=== PATIENT | female | born 1970 | race Caucasian/White ===

== ENCOUNTER 2020-09-25 15:52 | Emergency (ER) | payer MEDICARE ==
[~2020-09-25] VITALS: Ht 165.1 cm; Wt 90.9 kg
--- NOTE | 2020-09-25 16:46 | NUR ---
ELLEN ANGLIN IN ROOM, AMINTA VILLANUEVA TO SOAK WOUND TO REMOVE DRESSING AND BE ABLE TO VISUALILZE WOUNDS TO LEFT LATERL AND LEFT ANTERIOR LOWER LEG WOUND #1 ABOUT 12 CM ACROSS AND 7 CM WIDE
[2020-09-25] MEDS ORDERED: TETanus/Pertussis (Acell)/Diphther VAC/PF (Tdap-Adult) 0.5ml syringe IMVAC ONE (16:50)
--- NOTE | 2020-09-25 17:04 | NUR ---
wound #2 left lower leg lateral : 4cm x2cm, cleaned with chlorhexidine soap, xeroform, non adherent, gauze and mahsa wrap wound #2 red and green colored pa aware: cleaned with clorhexidine, xeroform and non adherent applied, gauze and mahsa wrap
--- NOTE | 2020-09-25 17:22 | NUR ---
asked zachery kwan to clean lower right leg with chlorhexidine brush and aplly bandaids to 3 wounds per pa rubio
--- NOTE | 2020-09-25 17:23 | NUR ---
3 smal abrasion like wounds to right lower exttremity, no dressing appear scabbed over and are about 0.5 cm each
[2020-09-25 17:26] VITALS: BP 139/73
--- NOTE | 2020-09-25 17:32 | NUR ---
CALLED [employer]MAEL [employer]ACON COMPUTATIONAL MATHEMATICIAN TO PICK HER UP. [phone] [id number]
--- NOTE | 2020-09-25 17:38 | NUR ---
SCRUBBED RIGHT LOWER LEG WITH CHLORHEXIDINE AND PLACED 3 BAND AIDS
== END 2020-09-25 17:35 | disposition home or self-care (01) ==
LOC: ER 15:53
DX: S81.802A Unspecified open wound, left lower leg, initial encounter (principal); I10 Essential (primary) hypertension; Z20.3 Contact with and (suspected) exposure to rabies; Z59.0 Homelessness; Z88.0 Allergy status to penicillin; Z88.8 Allergy status to other drugs, medicaments and biological substances; X58.XXXA Exposure to other specified factors, initial encounter; Y93.89 Activity, other specified; Y92.89 Other specified places as the place of occurrence of the external cause; Y99.8 Other external cause status
CPT/HCPCS: 90471; 90715; 99284

== ENCOUNTER 2020-10-01 15:27 | Emergency (ER) | payer MEDICARE ==
[~2020-10-01] VITALS: Ht 165.1 cm; Wt 86.3 kg
[2020-10-01] MEDS ORDERED: DOXYCYCLINE 100MG CAPSULE PO STA (17:30)
[2020-10-01] MEDS ORDERED: DOXY100C77 PO (17:40)
[2020-10-01 17:59] VITALS: BP 125/76
== END 2020-10-01 18:01 | disposition home or self-care (01) ==
LOC: ER 15:28
DX: L03.116 Cellulitis of left lower limb (principal); I83.029 Varicose veins of left lower extremity with ulcer of unspecified site; Z59.0 Homelessness; Z88.0 Allergy status to penicillin; Z88.1 Allergy status to other antibiotic agents; Z88.8 Allergy status to other drugs, medicaments and biological substances
CPT/HCPCS: 99284

== ENCOUNTER 2020-10-22 21:57 | Emergency (ER) | payer MEDICARE ==
[~2020-10-22] VITALS: Ht 165.1 cm; Wt 89.1 kg
[2020-10-22 22:00] VITALS: BP 136/86
[2020-10-22] MEDS ORDERED: CALA180L6 TOP (22:19)
[2020-10-22] MEDS ORDERED: DIPH-423 PO (22:19)
[2020-10-22] MEDS ORDERED: LORA10TA65 PO (22:19)
== END 2020-10-22 22:49 | disposition home or self-care (01) ==
LOC: ER 21:57
DX: S60.561A Insect bite (nonvenomous) of right hand, initial encounter (principal); S60.562A Insect bite (nonvenomous) of left hand, initial encounter; S80.862A Insect bite (nonvenomous), left lower leg, initial encounter; S80.861A Insect bite (nonvenomous), right lower leg, initial encounter; S20.469A Insect bite (nonvenomous) of unspecified back wall of thorax, initial encounter; Z59.0 Homelessness; Z88.0 Allergy status to penicillin; Z88.1 Allergy status to other antibiotic agents; Z79.899 Other long term (current) drug therapy; W57.XXXA Bitten or stung by nonvenomous insect and other nonvenomous arthropods, initial encounter; Y93.89 Activity, other specified; Y92.89 Other specified places as the place of occurrence of the external cause; Y99.8 Other external cause status
CPT/HCPCS: 99282

== ENCOUNTER 2021-06-09 10:58 | Inpatient (IN) | payer MEDICARE, MEDICAID ==
[~2021-06-09] VITALS: Ht 165.1 cm; Wt 84.1 kg
[~2021-06-09 10:58] MED LIST: CALA180L6 TOP; DIPH-423 PO; LORA10TA65 PO
[2021-06-09] MEDS ORDERED: diphenhydrAMINE 50 mg/ml inj IM ONE (11:05)
[2021-06-09] MEDS ORDERED: haloperidol lactate 5mg/ml inj IM ONE ×2 (11:05→13:00)
[2021-06-09] MEDS ORDERED: LORazepam 2 mg/ml vial IM ONE (11:05)
[2021-06-09] MEDS ORDERED: normal saline 1000ml 1,000 ML IV ONE (11:10)
[2021-06-09] MEDS ORDERED: vancomycin/NS 1 GM ADD-VANTAGE 250 ML IV ONE (11:10)
[2021-06-09] MEDS ORDERED: meropenem inj 1 GM in normal saline 100ml IV soln 100 ML IV ONE (12:00)
--- NOTE | 2021-06-09 12:04 | NUR ---
CALLED PHARMACY, DEONNA NOT AVAILABLE IN THE [facility]..
[2021-06-09 12:35] LABS: EOSINOPHILS # (AUTO) 0.1 X10'3 (0-0.9); MEAN CORPUSCULAR HGB CONC 32.5 g/dL (33.0-36.5)
[2021-06-09 12:39] LABS: BASOPHILS % (AUTO) 0.5 % (0-1); EOSINOPHILS % (AUTO) 1.2 % (0-6); HEMATOCRIT 38.7 % (35.0-45.0); HEMOGLOBIN 12.6 g/dl (12.0-16.0); LYMPHOCYTES # (AUTO) 1.1 X10'3 (1.1-4.8); LYMPHOCYTES % (AUTO) 13.9 % (21-51); MEAN CORPUSCULAR VOLUME 86.2 FL (78-98); MEAN PLATELET VOLUME 8.3 FL (7.4-10.4); MONOCYTES # (AUTO) 0.5 X10'3 (0-0.9); MONOCYTES % (AUTO) 6.3 % (2-12); NEUTROPHILS # (AUTO) 6.4 X10'3 (1.8-7.7); NEUTROPHILS % (AUTO) 78.1 % (42-75); PLATELET COUNT 346 X10'3 (140-440); RED BLOOD COUNT 4.49 X10'6 (4.20-5.60); RED CELL DISTRIBUTION WIDTH 15.2 % (11.5-14.5); WHITE BLOOD COUNT 8.3 X10'3 (4.5-11.0)
[2021-06-09 12:42] LABS: ANION GAP 9 (8-16); BLOOD UREA NITROGEN 13 MG/DL (7-18); BUN/CREATININE RATIO 13.5 (6.6-38.0); CALCIUM 8.9 MG/DL (8.5-10.1); CHLORIDE 105 MMOL/L (99-107); CREATININE 0.96 MG/DL (0.40-0.90); GLUCOSE 103 MG/DL (70-104); POTASSIUM 3.5 MMOL/L (3.5-5.1); SODIUM 140 MMOL/L (135-145); TOTAL CARBON DIOXIDE 26.4 MMOL/L (24-32); eGFR 61 ML/MIN
[2021-06-09] MEDS ORDERED: diphenhydrAMINE 50 mg/ml inj IV ONE (13:00)
--- NOTE | 2021-06-09 13:32 | NUR ---
PT YELLING AND CUSSING AND TRYING TO GET OUT OF BED NOTIFIED DR CERVANTES ORDERS FOR BENADRYL AND HALDOL GEORGIVVEN
[2021-06-09] MEDS ORDERED: iohexol 300mg/ml 100ml inj. ONE (14:15)
[2021-06-09] MEDS ORDERED: magnesium Cl slow-release 64mg tablet PO PRN (16:00)
[2021-06-09] MEDS ORDERED: ondansetron/PF 4mg/2ml inj IV PRN (16:00)
[2021-06-09] MEDS ORDERED: acetaminophen 650mg rectal suppository RC PRN (16:00)
[2021-06-09] MEDS ORDERED: acetaminophen 325mg tablet PO PRN ×2 (16:00)
[2021-06-09] MEDS ORDERED: potassium Cl 40MEQ/1/2NS 520ml 520 ML IV PRN ×2 (16:00)
[2021-06-09] MEDS ORDERED: potassium Cl 20 mEq SR tablet PO PRN ×2 (16:00)
[2021-06-09] MEDS ORDERED: magnesium hydroxide 30ml (MOM) UD suspension PO PRN (16:00)
[2021-06-09] MEDS ORDERED: bisacodyl 10mg suppository rectal RC PRN (16:00)
[2021-06-09] MEDS ORDERED: magnesium 2GM in 50ml NS 50 ML IV PRN (16:00)
[2021-06-09] MEDS ORDERED: morphine 2 MG/ML inj. syringe IV PRN (16:00)
[2021-06-09] MEDS ORDERED: magnesium 4gm in 100ml NS 100 ML IV PRN (16:00)
[2021-06-09] MEDS ORDERED: HYDROcodone/acetaminophen 5mg/325mg tablet PO PRN (16:00)
[2021-06-09] MEDS ORDERED: mag hydrox/Alum hydrox/simeth 30ml oral suspension PO PRN (16:00)
[2021-06-09] MEDS ORDERED: diphenhydrAMINE 25mg capsule PO PRN (16:00)
[2021-06-09] MEDS: normal saline 1000ml 1,000 ML IV SCH (16:49)
[2021-06-09] MEDS: morphine 2 MG/ML inj. syringe IV PRN (18:13)
[2021-06-09] MEDS: HYDROcodone/acetaminophen 10/325mg tab PO PRN ×2 (18:34→22:32)
[2021-06-09 18:42] LABS: URINE AMPHETAMINE SCREEN POSITIVE (Neg); URINE BARBITUATE SCREEN NEGATIVE (Neg); URINE BENZODIAZEPINES SCREEN NEGATIVE (Neg); URINE CANNABINOID SCREEN POSITIVE (Neg); URINE COCAINE SCREEN NEGATIVE (Neg); URINE METHADONE SCREEN NEGATIVE (Neg); URINE OPIATE SCREEN NEGATIVE (Neg); URINE PHENCYCLIDINE SCREEN NEGATIVE (Neg)
[2021-06-09 18:49] LABS: UA COLLECTION TYPE CLN CATCH MIDSTREAM
[2021-06-09 18:52] LABS: CLARITY,URINE SLIGHTLY CLOUDY (Clear); COLOR,URINE YELLOW (Yellow); GLUCOSE, URINE NEGATIVE (Neg); KETONES,URINE NEGATIVE (Neg); LEUKOCYTE ESTERASE ,URINE NEGATIVE (Neg); NITRITES, URINE POSITIVE (Neg); OCCULT BLOOD,URINE NEGATIVE (Neg); PH,URINE 6.5 (4.8-8.0); PROTEIN,URINE NEGATIVE (Neg); UROBILINOGEN,URINE 0.2 E.U/dL (0.2-1.0)
[2021-06-09 18:53] LABS: BACTERIA,URINE FEW /HPF (Neg); SQUAMOUS EPITHELIAL CELL,UR FEW /LPF (FEW); WBC,URINE 0-4 /HPF (0-4)
[2021-06-09] MEDS: heparin, porcine 5000 units/ml vial SQ SCH (20:00)
[2021-06-09] MEDS: K and/or MAG REPLACEMENT MC SCH (20:00)
[2021-06-09] MEDS: docusate sod 100mg capsule PO SCH (20:00)
[2021-06-09] MEDS ORDERED: UNABLE TO OBTAIN (20:09)
[2021-06-10] MEDS: normal saline 1000ml 1,000 ML IV SCH ×3 (02:59→22:00)
[2021-06-10 07:54] LABS: BASOPHILS % (AUTO) 0.3 % (0-1); EOSINOPHILS # (AUTO) 0.1 X10'3 (0-0.9); EOSINOPHILS % (AUTO) 1.4 % (0-6); HEMOGLOBIN 12.3 g/dl (12.0-16.0); LYMPHOCYTES # (AUTO) 0.6 X10'3 (1.1-4.8); LYMPHOCYTES % (AUTO) 8.8 % (21-51); MEAN CORPUSCULAR HEMOGLOBIN 28.4 PG (27.0-31.0); MEAN CORPUSCULAR HGB CONC 33.1 g/dL (33.0-36.5); MEAN CORPUSCULAR VOLUME 85.9 FL (78-98); MEAN PLATELET VOLUME 7.8 FL (7.4-10.4); MONOCYTES # (AUTO) 0.5 X10'3 (0-0.9); MONOCYTES % (AUTO) 7.3 % (2-12); NEUTROPHILS % (AUTO) 82.2 % (42-75); PLATELET COUNT 317 X10'3 (140-440); RED BLOOD COUNT 4.31 X10'6 (4.20-5.60); RED CELL DISTRIBUTION WIDTH 15.7 % (11.5-14.5); WHITE BLOOD COUNT 7.3 X10'3 (4.5-11.0)
[2021-06-10] MEDS: K and/or MAG REPLACEMENT MC SCH ×2 (08:00→20:00)
[2021-06-10] MEDS: docusate sod 100mg capsule PO SCH ×2 (08:00→20:00)
[2021-06-10] MEDS: heparin, porcine 5000 units/ml vial SQ SCH ×2 (08:00→23:49)
[2021-06-10] MEDS: propranolol 10mg tablet PO SCH ×2 (09:25→23:30)
[2021-06-10 10:35] LABS: ALANINE AMINOTRANSFERASE 16 U/L (12-78); ALBUMIN 2.7 G/DL (3.4-5.0); ALBUMIN/GLOBULIN RATIO 0.6 (1.1-1.5); ALKALINE PHOSPHATASE 100 IU/L (46-116); ANION GAP 9 (8-16); ASPARTATE AMINO TRANSFERASE 13 U/L (10-37); BILIRUBIN,TOTAL 0.9 MG/DL (0.1-1.0); BLOOD UREA NITROGEN 9 MG/DL (7-18); BUN/CREATININE RATIO 10.7 (6.6-38.0); CALCIUM 8.5 MG/DL (8.5-10.1); CHLORIDE 106 MMOL/L (99-107); CHOL/HDL RATIO 2.7 (0.00-4.99); CHOLESTEROL 123 MG/DL (0-200); CREATININE 0.84 MG/DL (0.40-0.90); GLUCOSE 87 MG/DL (70-104); HDL CHOLESTEROL 45 MG/DL (35-60); LDL CHOLESTEROL 62 MG/DL (50-100); MAGNESIUM 1.9 MG/DL (1.5-2.4); PHOSPHORUS 3.6 MG/DL (2.3-4.5); POTASSIUM 3.8 MMOL/L (3.5-5.1); SODIUM 142 MMOL/L (135-145); TOTAL CARBON DIOXIDE 26.9 MMOL/L (24-32); TOTAL PROTEIN 7.6 G/DL (6.4-8.2); TRIGLYCERIDES 60 MG/DL (20-135); eGFR 71 ML/MIN
[2021-06-10] MEDS: meropenem inj 1 GM in normal saline 100ml IV soln 100 ML IV SCH ×3 (12:32)
--- NOTE | 2021-06-10 12:45 | NUR ---
Pt is somulent. Has positional R EJ 18G. Large wound/ulcer on L LE 20cm x 10cm. Cleaned wound and dress with xeroform, abd pad and kerlex.
[2021-06-10] MEDS: amLODIPine 5mg tablet PO SCH (12:54)
--- NOTE | 2021-06-10 13:28 | NUR ---
Pt is calm and cooperative. Eating lunch. She made a verbal contract that she will not harm herself while here in the ER.
[2021-06-10] MEDS ORDERED: ipratropium/albuterol 3ml nebule NEB PRN (14:05)
[2021-06-10] MEDS: vancomycin/NS 1 GM ADD-VANTAGE 250 ML IV SCH ×2 (17:12)
[2021-06-10] MEDS ORDERED: VANCOMYCIN LEVEL IV ONE (23:30)
[2021-06-10] MEDS ORDERED: vancomycin/NS 1 GM ADD-VANTAGE 250 ML IV SCH (23:39)
[2021-06-11 07:48] LABS: ALANINE AMINOTRANSFERASE 10 U/L (12-78); ALBUMIN 2.4 G/DL (3.4-5.0); ALBUMIN/GLOBULIN RATIO 0.5 (1.1-1.5); ALKALINE PHOSPHATASE 95 IU/L (46-116); ANION GAP 8 (8-16); ASPARTATE AMINO TRANSFERASE 13 U/L (10-37); BILIRUBIN,TOTAL 0.6 MG/DL (0.1-1.0); BLOOD UREA NITROGEN 9 MG/DL (7-18); BUN/CREATININE RATIO 13.4 (6.6-38.0); CALCIUM 8.4 MG/DL (8.5-10.1); CHLORIDE 107 MMOL/L (99-107); CREATININE 0.67 MG/DL (0.40-0.90); GLUCOSE 96 MG/DL (70-104); PHOSPHORUS 3.2 MG/DL (2.3-4.5); POTASSIUM 3.7 MMOL/L (3.5-5.1); SODIUM 140 MMOL/L (135-145); TOTAL CARBON DIOXIDE 24.7 MMOL/L (24-32); TOTAL PROTEIN 7.4 G/DL (6.4-8.2); eGFR > 90 ML/MIN
[2021-06-11] MEDS: K and/or MAG REPLACEMENT MC SCH ×2 (08:00→20:00)
[2021-06-11 08:27] LABS: BASOPHILS % (AUTO) 0.7 % (0-1); EOSINOPHILS # (AUTO) 0.1 X10'3 (0-0.9); EOSINOPHILS % (AUTO) 2.5 % (0-6); HEMATOCRIT 38.4 % (35.0-45.0); HEMOGLOBIN 12.5 g/dl (12.0-16.0); LYMPHOCYTES # (AUTO) 1.5 X10'3 (1.1-4.8); LYMPHOCYTES % (AUTO) 28.9 % (21-51); MEAN CORPUSCULAR HEMOGLOBIN 28.2 PG (27.0-31.0); MEAN CORPUSCULAR HGB CONC 32.5 g/dL (33.0-36.5); MEAN CORPUSCULAR VOLUME 86.8 FL (78-98); MEAN PLATELET VOLUME 7.4 FL (7.4-10.4); MONOCYTES # (AUTO) 0.4 X10'3 (0-0.9); MONOCYTES % (AUTO) 7.5 % (2-12); NEUTROPHILS # (AUTO) 3.1 X10'3 (1.8-7.7); NEUTROPHILS % (AUTO) 60.4 % (42-75); PLATELET COUNT 308 X10'3 (140-440); RED BLOOD COUNT 4.42 X10'6 (4.20-5.60); RED CELL DISTRIBUTION WIDTH 15.5 % (11.5-14.5); WHITE BLOOD COUNT 5.1 X10'3 (4.5-11.0)
[2021-06-11] MEDS: meropenem inj 1 GM in normal saline 100ml IV soln 100 ML IV SCH ×4 (09:45→16:15)
[2021-06-11] MEDS: normal saline 1000ml 1,000 ML IV SCH (09:45)
[2021-06-11] MEDS: heparin, porcine 5000 units/ml vial SQ SCH ×2 (09:49→19:59)
[2021-06-11] MEDS: docusate sod 100mg capsule PO SCH ×2 (09:52→19:58)
[2021-06-11] MEDS: amLODIPine 5mg tablet PO SCH (09:53)
[2021-06-11] MEDS: propranolol 10mg tablet PO SCH ×2 (09:53→19:58)
[2021-06-11] MEDS: vancomycin/NS 1 GM ADD-VANTAGE 250 ML IV SCH ×2 (10:07→20:50)
[2021-06-11] MEDS: morphine 2 MG/ML inj. syringe IV PRN (10:07)
[2021-06-11] MEDS: HYDROcodone/acetaminophen 10/325mg tab PO PRN ×3 (11:51→21:14)
[2021-06-11] MEDS ORDERED: amLODIPine 5mg tablet PO ONE (13:05)
[2021-06-11 17:00] VITALS: BP 107/65
[2021-06-11 18:00] VITALS: BP 124/86
[2021-06-11] MEDS ORDERED: VANCOMYCIN LEVEL IV ONE (20:30)
[2021-06-11 22:00] VITALS: BP 118/72
[2021-06-12] MEDS: meropenem inj 1 GM in normal saline 100ml IV soln 100 ML IV SCH ×3 (00:42→15:37)
[2021-06-12] MEDS: normal saline 1000ml 1,000 ML IV SCH ×3 (00:43→14:23)
[2021-06-12 02:00] VITALS: BP 148/88
--- NOTE | 2021-06-12 03:37 | NUR ---
Patient has a positive blood cultures result MD Cooley aware, patient still want to go see her dog at am , educated patient to wait and complete her treatment will continue to monitor and report changes
--- NOTE | 2021-06-12 06:30 | NUR ---
Patient in room PCU 3025. I have received report from Vibha CA and had the opportunity to ask questions and assume patient care.
[2021-06-12 06:47] LABS: EOSINOPHILS # (AUTO) 0.1 X10'3 (0-0.9); HEMATOCRIT 35.2 % (35.0-45.0); HEMOGLOBIN 11.5 g/dl (12.0-16.0); LYMPHOCYTES # (AUTO) 1.2 X10'3 (1.1-4.8); LYMPHOCYTES % (AUTO) 31.3 % (21-51); MEAN CORPUSCULAR HEMOGLOBIN 28.5 PG (27.0-31.0); MEAN CORPUSCULAR HGB CONC 32.8 g/dL (33.0-36.5); MEAN CORPUSCULAR VOLUME 86.9 FL (78-98); MONOCYTES # (AUTO) 0.4 X10'3 (0-0.9); MONOCYTES % (AUTO) 9.7 % (2-12); PLATELET COUNT 288 X10'3 (140-440); RED BLOOD COUNT 4.05 X10'6 (4.20-5.60); RED CELL DISTRIBUTION WIDTH 15.6 % (11.5-14.5); WHITE BLOOD COUNT 3.7 X10'3 (4.5-11.0)
[2021-06-12 07:21] LABS: ALANINE AMINOTRANSFERASE 12 U/L (12-78); ALBUMIN 2.4 G/DL (3.4-5.0); ALBUMIN/GLOBULIN RATIO 0.5 (1.1-1.5); ALKALINE PHOSPHATASE 95 IU/L (46-116); ANION GAP 6 (8-16); ASPARTATE AMINO TRANSFERASE 14 U/L (10-37); BILIRUBIN,TOTAL 0.4 MG/DL (0.1-1.0); BLOOD UREA NITROGEN 15 MG/DL (7-18); BUN/CREATININE RATIO 18.1 (6.6-38.0); CALCIUM 8.8 MG/DL (8.5-10.1); CHLORIDE 106 MMOL/L (99-107); CREATININE 0.83 MG/DL (0.40-0.90); GLUCOSE 84 MG/DL (70-104); MAGNESIUM 2.2 MG/DL (1.5-2.4); PHOSPHORUS 3.4 MG/DL (2.3-4.5); POTASSIUM 4.2 MMOL/L (3.5-5.1); SODIUM 139 MMOL/L (135-145); TOTAL CARBON DIOXIDE 26.6 MMOL/L (24-32); TOTAL PROTEIN 7.5 G/DL (6.4-8.2); eGFR 72 ML/MIN
[2021-06-12] MEDS ORDERED: amLODIPine 5mg tablet PO SCH (08:00)
[2021-06-12] MEDS: K and/or MAG REPLACEMENT MC SCH ×2 (08:00→20:00)
[2021-06-12] MEDS: HYDROcodone/acetaminophen 10/325mg tab PO PRN ×2 (08:49→20:57)
[2021-06-12] MEDS: propranolol 10mg tablet PO SCH ×2 (08:49→20:54)
[2021-06-12] MEDS: heparin, porcine 5000 units/ml vial SQ SCH ×2 (08:54→20:56)
[2021-06-12] MEDS: docusate sod 100mg capsule PO SCH ×2 (08:54→20:00)
[2021-06-12] MEDS: vancomycin/NS 1 GM ADD-VANTAGE 250 ML IV SCH ×2 (09:37→20:56)
--- NOTE | 2021-06-12 10:55 | NUR ---
Met with patient in regards to substance use and to see if patient wanted any resources for treatment and patient declined
[2021-06-12 11:00] VITALS: BP 166/98
--- NOTE | 2021-06-12 11:39 | NUR ---
Paged Dr. Colon regarding [phone]. PAGER ID: [phone] MESSAGE: [id number], Rachel Franklin. Radha spoke with patient, Radha says patient doesn't need [phone], and is cleared from her standpoint. U Emily CA.
[2021-06-12 15:22] VITALS: BP 152/98
--- NOTE | 2021-06-12 18:28 | NUR ---
Problems reprioritized. Patient report given, questions answered & plan of care reviewed with Davin CA. Patient stable at transfer of care.
--- NOTE | 2021-06-12 18:41 | NUR ---
Patient in room PCU 3025. I have received report from Davie CA and had the opportunity to ask questions and assume patient care.
[2021-06-12 19:35] VITALS: BP 125/84
[2021-06-12] MEDS ORDERED: lactobacillus rhamnosus 10,000 MMU CELLS/CAPSULE PO SCH (20:00)
[2021-06-13] MEDS: meropenem inj 1 GM in normal saline 100ml IV soln 100 ML IV SCH (00:42)
--- NOTE | 2021-06-13 01:27 | NUR ---
patient declared the desire to leave the hospital AMA. This loan underwriter spoke with patient to confirm that patient was alert and oriented. Patient knew she was in [facility], in [facility], that the year was 2020, and who the current president was. Social work had already cleared the patient for discharge during the previous shift. MD notified of patient's decision. IV and Telemetry removed from patient, and AMA paperwork was signed by patient.
== END 2021-06-13 01:20 | disposition left against medical advice (07) | DRG 917 ==
LOC: ER 10:59 → ED HOLD 16:05 → EDBEDREQ 06-11 02:12 → PCU 3S 06-11 11:39
PROVIDERS: ADMIT Family Medicine; ATTEND Family Medicine
PROC: BQ2S1ZZ Computerized Tomography (CT Scan) of Left Lower Extremity using Low Osmolar Contrast (ICD-10-PCS; principal; 2021-06-09)
DX: T43.621A Poisoning by amphetamines, accidental (unintentional), initial encounter (principal); A41.9 Sepsis, unspecified organism; L97.329 Non-pressure chronic ulcer of left ankle with unspecified severity; N39.0 Urinary tract infection, site not specified; L03.116 Cellulitis of left lower limb; G93.40 Encephalopathy, unspecified; Z20.822 Contact with and (suspected) exposure to COVID-19; Z53.29 Procedure and treatment not carried out because of patient's decision for other reasons; Y92.89 Other specified places as the place of occurrence of the external cause; Z59.00 Homelessness unspecified; Z88.0 Allergy status to penicillin; Z88.8 Allergy status to other drugs, medicaments and biological substances
CPT/HCPCS: 36415; 71045; 73701; 76937; 80048; 80053; 80061; 80202; 80305; 81001; 83605; 83735; 84100; 84443; 85025; 87040; 87077; 87088; 87186; 87635; 93926; 93970; 93971; 94760; 96365; 96367; 96372; 96375; 97116; 97161; 99215; 99285; G0378; J1200; J1630; J1644; J2060; J2185; J2270; J3370; J7030; Q9967

== ENCOUNTER 2021-07-13 20:20 | Inpatient (IN) | payer MEDICARE, MEDICAID ==
[~2021-07-13] VITALS: Ht 165.1 cm; Wt 84.1 kg
[~2021-07-13 20:20] MED LIST changes: -CALA180L6 TOP; -DIPH-423 PO; -LORA10TA65 PO; +UNABLE TO OBTAIN
[2021-07-13 23:36] LABS: BASOPHILS % (AUTO) 0.6 % (0-1); EOSINOPHILS # (AUTO) 0.1 X10'3 (0-0.9); EOSINOPHILS % (AUTO) 1.8 % (0-6); HEMATOCRIT 35.3 % (35.0-45.0); HEMOGLOBIN 11.4 g/dl (12.0-16.0); LYMPHOCYTES # (AUTO) 0.6 X10'3 (1.1-4.8); LYMPHOCYTES % (AUTO) 9.1 % (21-51); MEAN CORPUSCULAR HEMOGLOBIN 27.7 PG (27.0-31.0); MEAN CORPUSCULAR HGB CONC 32.3 g/dL (33.0-36.5); MEAN CORPUSCULAR VOLUME 85.7 FL (78-98); MEAN PLATELET VOLUME 7.6 FL (7.4-10.4); MONOCYTES # (AUTO) 0.4 X10'3 (0-0.9); MONOCYTES % (AUTO) 6.2 % (2-12); NEUTROPHILS # (AUTO) 5.9 X10'3 (1.8-7.7); NEUTROPHILS % (AUTO) 82.3 % (42-75); PLATELET COUNT 375 X10'3 (140-440); RED BLOOD COUNT 4.12 X10'6 (4.20-5.60); WHITE BLOOD COUNT 7.1 X10'3 (4.5-11.0)
[2021-07-13 23:42] LABS: ALBUMIN 3.1 G/DL (3.4-5.0); BLOOD UREA NITROGEN 16 MG/DL (7-18); BUN/CREATININE RATIO 13.1 (6.6-38.0); CALCIUM 8.9 MG/DL (8.5-10.1); CREATININE 1.22 MG/DL (0.40-0.90); GLUCOSE 103 MG/DL (70-104); TOTAL CARBON DIOXIDE 28.5 MMOL/L (24-32); eGFR 46 ML/MIN
[2021-07-13 23:56] LABS: ANION GAP 8 (8-16); CHLORIDE 102 MMOL/L (99-107); POTASSIUM 3.4 MMOL/L (3.5-5.1); SODIUM 138 MMOL/L (135-145)
[2021-07-14] MEDS ORDERED: LIDOcaine 1% 30ml preserv. free vial IJ ONE (00:50)
[2021-07-14] MEDS: TETanus/Pertussis (Acell)/Diphther VAC/PF (Tdap-Adult) 0.5ml syringe IMVAC ONE ×2 (01:13→01:15)
[2021-07-14] MEDS ORDERED: metroNIDAZOLE-Flagyl 500mg/NS 100 ML IV STA (01:48)
[2021-07-14] MEDS ORDERED: vancomycin/NS 1 GM ADD-VANTAGE 250 ML IV ONE (01:55)
[2021-07-14] MEDS ORDERED: bisacodyl 10mg suppository rectal RC PRN (03:05)
[2021-07-14] MEDS ORDERED: diphenhydrAMINE 25mg capsule PO PRN (03:05)
[2021-07-14] MEDS ORDERED: magnesium Cl slow-release 64mg tablet PO PRN (03:05)
[2021-07-14] MEDS ORDERED: HYDROcodone/acetaminophen 5mg/325mg tablet PO PRN (03:05)
[2021-07-14] MEDS ORDERED: magnesium hydroxide 30ml (MOM) UD suspension PO PRN (03:05)
[2021-07-14] MEDS ORDERED: magnesium 2GM in 50ml NS 50 ML IV PRN (03:05)
[2021-07-14] MEDS ORDERED: ondansetron/PF 4mg/2ml inj IV PRN (03:05)
[2021-07-14] MEDS ORDERED: diphenhydrAMINE 50 mg/ml inj IV PRN (03:05)
[2021-07-14] MEDS ORDERED: potassium Cl 20 mEq SR tablet PO PRN ×2 (03:05)
[2021-07-14] MEDS ORDERED: HYDROcodone/acetaminophen 10/325mg tab PO PRN (03:05)
[2021-07-14] MEDS ORDERED: magnesium 4gm in 100ml NS 100 ML IV PRN (03:05)
[2021-07-14] MEDS ORDERED: metoclopramide 5 mg/ml inj IV PRN (03:05)
[2021-07-14] MEDS ORDERED: acetaminophen 325mg tablet PO PRN ×2 (03:05)
[2021-07-14] MEDS ORDERED: mag hydrox/Alum hydrox/simeth 30ml oral suspension PO PRN (03:05)
[2021-07-14] MEDS ORDERED: acetaminophen 650mg rectal suppository RC PRN (03:05)
[2021-07-14] MEDS ORDERED: normal saline 1000ml 1,000 ML IV SCH (03:05)
[2021-07-14] MEDS ORDERED: ondansetron 4mg rapidly disintigrating tab PO PRN (03:05)
[2021-07-14] MEDS ORDERED: morphine 2 MG/ML inj. syringe IV PRN ×2 (03:05)
[2021-07-14] MEDS ORDERED: potassium CL 10mEq/100ml bag 100 ML IV PRN (03:05)
[2021-07-14 04:04] LABS: ETHANOL < 0.010 GM/DL (0.0-0.010); MAGNESIUM 2.2 MG/DL (1.5-2.4)
--- NOTE | 2021-07-14 04:43 | NUR ---
at bedside suturing pt.
--- NOTE | 2021-07-14 05:10 | NUR ---
Patient in room DIVYA 340. I have received report from Epi Owen rN and had the opportunity to ask questions and WILL pt assume patient care upon arrival to the floor. Addendum: 07/14/21 at 0548 by Edelmira Rodriguez RN Amended: Links added.
[2021-07-14] MEDS ORDERED: methylPREDNISolone sod succ 125mg/2ml vial IV ONE (06:40)
[2021-07-14] MEDS ORDERED: diphenhydrAMINE 50 mg/ml inj IV ONE (06:40)
--- NOTE | 2021-07-14 06:47 | NUR ---
Problems reprioritized. Patient report given, questions answered & plan of care reviewed with LEO CA. Addendum: 07/14/21 at 0648 by Edelmira Rodriguez RN Amended: Links added.
[2021-07-14 07:30] VITALS: BP 149/90
[2021-07-14] MEDS ORDERED: pantoprazole 40mg Tablet.DR PO SCH (07:30)
[2021-07-14] MEDS ORDERED: docusate sod 100mg capsule PO SCH (08:00)
[2021-07-14] MEDS ORDERED: levoFLOXACIN-Levaquin 750MG/D5 150 ML IV SCH (08:00)
[2021-07-14] MEDS ORDERED: nicotine 21mg patch - 24 hr TD SCH (08:00)
[2021-07-14] MEDS ORDERED: heparin, porcine 5000 units/ml vial SQ SCH (08:00)
[2021-07-14] MEDS ORDERED: K and/or MAG REPLACEMENT MC SCH (08:00)
--- NOTE | 2021-07-14 08:34 | NUR ---
RT paged to evaluate the patient. Upon RT assessment, the pt is sleeping peacefully. Pt awakens however cannot stay awake long enough to complete RT evaluation. Pt on RA with and SpO2 of 93%. No SOB/distress noted at this time. Reviewed chart and it shows no reported home medications for SVN/MDI txs. No intervention indicated at this time. RT will return later when pt is awake enough to complete eval and treat.
[2021-07-14 08:41] LABS: PARTIAL THROMBOPLASTIN TIME 26 SECONDS (22-32)
[2021-07-14] MEDS ORDERED: AMLO2.5T12 PO (13:58)
[2021-07-14] MEDS ORDERED: ALBU8.5H17 INH (13:58)
[2021-07-14 13:59] VITALS: BP 101/65
[2021-07-14] MEDS ORDERED: LACT1CAP26 PO (14:18)
[2021-07-14] MEDS ORDERED: PANT40TA54 PO (14:18)
[2021-07-14] MEDS ORDERED: LEVO500T90 PO (14:18)
--- NOTE | 2021-07-14 17:16 | NUR ---
Patient discharged to [facility] via [facility]. Pt will have 2 stops to [place] [address] and then as close as possible to [place] [facility] due to [place] in progress. Patient agreeable to plan and is walking well, 2 laps w/ walker no issues, good movement. Walker given to patient for assistance for discharge use, brought by theresa. IV taken out, pt aware to follow up at wound clinic for leg and pcp/hope van or wound clilic for suture removal next week. Pt was very lethargic and shaky this AM at morning shift change. She felt like it was respiratory due to vanco. It was turned off and benedryl and solumedrol were given, but patient was also likely coming off of drugs and very anxious at the time so it is truely unknown if there was a true allergy. I have talked to pharmacist about this as well and they also feel that it is likely not a true allergy. She had calmed down even before benedryl and solumedrol were given and there was no evidence of her throat closing or hives. Pt slept most of the day after this incidence and woke up and was much more alert and appeared back to a normal baseline, very talkative, energetic and aggreeable to plan. Pt states understanding of discharge plan. IV taken out, no tele. All belongings taken from room.
[2021-07-14] MEDS ORDERED: lactobacillus rhamnosus 10,000 MMU CELLS/CAPSULE PO SCH (20:00)
[2021-07-14] MEDS ORDERED: temazepam 15mg capsule PO PRN (21:00)
== END 2021-07-14 17:15 | disposition home or self-care (01) | DRG 603 ==
LOC: EEVIPCON 20:21 → ER 20:21 → ED HOLD 07-14 03:09 → SUR 3N 07-14 05:20 → UNDODISIN 07-14 15:35
PROVIDERS: ADMIT Family Medicine; ATTEND Family Medicine
PROC: 0HQ5XZZ Repair Chest Skin, External Approach (ICD-10-PCS; principal; 2021-07-13)
DX: L03.115 Cellulitis of right lower limb (principal); S21.119A Laceration without foreign body of unspecified front wall of thorax without penetration into thoracic cavity, initial encounter; N17.9 Acute kidney failure, unspecified; I82.512 Chronic embolism and thrombosis of left femoral vein; I82.532 Chronic embolism and thrombosis of left popliteal vein; L03.116 Cellulitis of left lower limb; S81.802A Unspecified open wound, left lower leg, initial encounter; E87.6 Hypokalemia; Y04.8XXA Assault by other bodily force, initial encounter; I82.562 Chronic embolism and thrombosis of left calf muscular vein; F15.90 Other stimulant use, unspecified, uncomplicated; X58.XXXA Exposure to other specified factors, initial encounter; F17.200 Nicotine dependence, unspecified, uncomplicated; N18.9 Chronic kidney disease, unspecified; Z59.00 Homelessness unspecified; Y93.89 Activity, other specified; Y92.89 Other specified places as the place of occurrence of the external cause; Y99.8 Other external cause status; Z88.0 Allergy status to penicillin; Z88.8 Allergy status to other drugs, medicaments and biological substances; Z71.41 Alcohol abuse counseling and surveillance of alcoholic; Z71.6 Tobacco abuse counseling; Z71.51 Drug abuse counseling and surveillance of drug abuser
CPT/HCPCS: 12013; 36415; 71045; 73610; 80048; 80320; 83605; 83735; 84100; 85025; 85610; 85730; 87081; 90715; 93005; 93971; 94760; 99285; G0378; J1200; J1644; J1956; J2270; J2930; J3370; J3490; J7030

== ENCOUNTER 2021-09-30 15:04 | Emergency (ER) | payer MEDICARE, MEDICAID ==
[~2021-09-30] VITALS: Ht 167.6 cm; Wt 91.0 kg
[~2021-09-30 15:04] MED LIST changes: +ALBU8.5H17 INH; +AMLO2.5T12 PO; +LACT1CAP26 PO; +PANT40TA54 PO; -UNABLE TO OBTAIN
[2021-09-30 15:05] VITALS: BP 118/85
[2021-09-30] MEDS ORDERED: ondansetron 4mg rapidly disintigrating tab PO ONE (15:30)
[2021-09-30 16:02] LABS: BASOPHILS % (AUTO) 0.5 % (0-1); EOSINOPHILS # (AUTO) 0.1 X10'3 (0-0.9); EOSINOPHILS % (AUTO) 1.2 % (0-6); HEMATOCRIT 37.3 % (35.0-45.0); HEMOGLOBIN 12.6 g/dl (12.0-16.0); LYMPHOCYTES # (AUTO) 0.9 X10'3 (1.1-4.8); LYMPHOCYTES % (AUTO) 20.3 % (21-51); MEAN CORPUSCULAR HEMOGLOBIN 27.8 PG (27.0-31.0); MEAN CORPUSCULAR HGB CONC 33.6 g/dL (33.0-36.5); MEAN CORPUSCULAR VOLUME 82.6 FL (78-98); MEAN PLATELET VOLUME 7.6 FL (7.4-10.4); MONOCYTES # (AUTO) 0.3 X10'3 (0-0.9); MONOCYTES % (AUTO) 7.4 % (2-12); NEUTROPHILS # (AUTO) 3.3 X10'3 (1.8-7.7); NEUTROPHILS % (AUTO) 70.6 % (42-75); PLATELET COUNT 390 X10'3 (140-440); RED BLOOD COUNT 4.52 X10'6 (4.20-5.60); RED CELL DISTRIBUTION WIDTH 17.2 % (11.5-14.5); WHITE BLOOD COUNT 4.6 X10'3 (4.5-11.0)
[2021-09-30 16:04] LABS: ALANINE AMINOTRANSFERASE 23 U/L (12-78); ALBUMIN/GLOBULIN RATIO 0.7 (1.1-1.5); ALKALINE PHOSPHATASE 107 IU/L (46-116); ANION GAP 9 (8-16); ASPARTATE AMINO TRANSFERASE 20 U/L (10-37); BILIRUBIN,TOTAL 0.7 MG/DL (0.1-1.0); BLOOD UREA NITROGEN 13 MG/DL (7-18); BUN/CREATININE RATIO 15.3 (6.6-38.0); CALCIUM 8.8 MG/DL (8.5-10.1); CHLORIDE 100 MMOL/L (99-107); CREATININE 0.85 MG/DL (0.40-0.90); GLUCOSE 104 MG/DL (70-104); LIPASE 171 U/L (73-393); POTASSIUM 3.6 MMOL/L (3.5-5.1); SODIUM 138 MMOL/L (135-145); TOTAL CARBON DIOXIDE 29.2 MMOL/L (24-32); TOTAL PROTEIN 7.4 G/DL (6.4-8.2); eGFR 70 ML/MIN
[2021-09-30] MEDS ORDERED: PRED50TA PO (17:06)
[2021-09-30] MEDS ORDERED: AZIT-83 PO (17:06)
== END 2021-09-30 17:22 | disposition left against medical advice (07) ==
LOC: ER 15:06
DX: A08.4 Viral intestinal infection, unspecified (principal); Z20.822 Contact with and (suspected) exposure to COVID-19; J44.1 Chronic obstructive pulmonary disease with (acute) exacerbation; J90 Pleural effusion, not elsewhere classified; R11.2 Nausea with vomiting, unspecified; F15.90 Other stimulant use, unspecified, uncomplicated; Z59.00 Homelessness unspecified; Z86.718 Personal history of other venous thrombosis and embolism; Z88.0 Allergy status to penicillin; Z88.1 Allergy status to other antibiotic agents; Z88.8 Allergy status to other drugs, medicaments and biological substances; Z79.2 Long term (current) use of antibiotics; Z79.899 Other long term (current) drug therapy
CPT/HCPCS: 36415; 71045; 80053; 83690; 85025; 87635; 99284; C9803

== ENCOUNTER 2021-10-19 11:03 | Inpatient (IN) | payer MEDICARE, MEDICAID ==
[~2021-10-19] VITALS: Ht 167.6 cm; Wt 85.5 kg
[~2021-10-19 11:03] MED LIST changes: +AZIT-83 PO; +PRED50TA PO
[2021-10-19 12:27] LABS: BASOPHILS % (AUTO) 0.5 % (0-1); EOSINOPHILS # (AUTO) 0.2 X10'3 (0-0.9); EOSINOPHILS % (AUTO) 2.4 % (0-6); HEMATOCRIT 37.6 % (35.0-45.0); HEMOGLOBIN 12.1 g/dl (12.0-16.0); LYMPHOCYTES # (AUTO) 1.2 X10'3 (1.1-4.8); LYMPHOCYTES % (AUTO) 18.7 % (21-51); MEAN CORPUSCULAR HEMOGLOBIN 27.2 PG (27.0-31.0); MEAN CORPUSCULAR HGB CONC 32.1 g/dL (33.0-36.5); MEAN CORPUSCULAR VOLUME 84.7 FL (78-98); MEAN PLATELET VOLUME 7.4 FL (7.4-10.4); MONOCYTES # (AUTO) 0.6 X10'3 (0-0.9); NEUTROPHILS # (AUTO) 4.6 X10'3 (1.8-7.7); NEUTROPHILS % (AUTO) 69.4 % (42-75); PLATELET COUNT 335 X10'3 (140-440); RED BLOOD COUNT 4.44 X10'6 (4.20-5.60); RED CELL DISTRIBUTION WIDTH 17.4 % (11.5-14.5); WHITE BLOOD COUNT 6.6 X10'3 (4.5-11.0)
[2021-10-19 12:38] LABS: ALANINE AMINOTRANSFERASE 16 U/L (12-78); ALBUMIN 3.1 G/DL (3.4-5.0); ALBUMIN/GLOBULIN RATIO 0.6 (1.1-1.5); ALKALINE PHOSPHATASE 107 IU/L (46-116); ANION GAP 11 (8-16); ASPARTATE AMINO TRANSFERASE 17 U/L (10-37); BILIRUBIN,TOTAL 0.4 MG/DL (0.1-1.0); BLOOD UREA NITROGEN 10 MG/DL (7-18); BUN/CREATININE RATIO 15.4 (6.6-38.0); CALCIUM 8.8 MG/DL (8.5-10.1); CHLORIDE 105 MMOL/L (99-107); CREATININE 0.65 MG/DL (0.40-0.90); GLUCOSE 90 MG/DL (70-104); SODIUM 140 MMOL/L (135-145); TOTAL CARBON DIOXIDE 24.5 MMOL/L (24-32); TOTAL PROTEIN 8.3 G/DL (6.4-8.2); eGFR > 90 ML/MIN
[2021-10-19 12:44] LABS: POTASSIUM 3.8 MMOL/L (3.5-5.1)
--- NOTE | 2021-10-19 13:23 | NUR ---
Patient c/o left lower extremity pain, elevated leg on pillows to help with edema and pain. Awaiting physician to evaluate patient.
[2021-10-19] MEDS ORDERED: levoFLOXACIN-Levaquin 750MG/D5 150 ML IV STA (14:21)
[2021-10-19] MEDS ORDERED: morphine 4 MG/ML inj SYRINge IV ONE (14:45)
[2021-10-19] MEDS ORDERED: ALBU18HF2 (15:14)
[2021-10-19] MEDS ORDERED: pneumococcal 23-VAL P-sac vacc 25 mcg/0.5ml vial IMVAC ONE (15:25)
[2021-10-19] MEDS ORDERED: iohexol 300mg/ml 100ml inj. ONE (15:37)
[2021-10-19] MEDS ORDERED: magnesium hydroxide 30ml (MOM) UD suspension PO PRN (15:40)
[2021-10-19] MEDS ORDERED: potassium CL 10mEq/100ml bag 100 ML IV PRN (15:40)
[2021-10-19] MEDS ORDERED: mag hydrox/Alum hydrox/simeth 30ml oral suspension PO PRN (15:40)
[2021-10-19] MEDS ORDERED: magnesium 2GM in 50ml NS 50 ML IV PRN (15:40)
[2021-10-19] MEDS ORDERED: potassium Cl 20 mEq SR tablet PO PRN ×2 (15:40)
[2021-10-19] MEDS ORDERED: HYDROmorphone/PF 0.2 MG/ML SYRINGE IV PRN (15:40)
[2021-10-19] MEDS ORDERED: acetaminophen 325mg tablet PO PRN (15:40)
[2021-10-19] MEDS ORDERED: magnesium 4gm in 100ml NS 100 ML IV PRN (15:40)
[2021-10-19] MEDS ORDERED: vancomycin/NS 1 GM ADD-VANTAGE 250 ML IV ONE (15:45)
[2021-10-19] MEDS: metroNIDAZOLE-Flagyl 750mg/NS 150 ML IV SCH (16:00)
[2021-10-19] MEDS ORDERED: albuterol 2.5 MG/3 ML nebule NEB PRN (16:05)
--- NOTE | 2021-10-19 17:33 | NUR ---
Patient admitted from ER alert and oriented x 4. wound noted on left lower extremity. no distress noted at this time
[2021-10-19 18:02] VITALS: BP 149/100
--- NOTE | 2021-10-19 18:30 | NUR ---
Patient in room DIVYA 345. I have received report from Jayden CA. and had the opportunity to ask questions and assume patient care.
[2021-10-19] MEDS: HYDROmorphone inj. 0.5 MG/0.5 ML DISP.SYRIN IV PRN (18:45)
[2021-10-19] MEDS: docusate sod 100mg capsule PO SCH (19:28)
[2021-10-19] MEDS: ciprofloxacin lact 400MG/200ML 200 ML IV SCH (19:30)
[2021-10-19] MEDS: enoxaparin 40mg/0.4ml syringe SQ SCH (19:40)
[2021-10-19 20:00] VITALS: BP 135/86
[2021-10-19] MEDS: K and/or MAG REPLACEMENT MC SCH (20:00)
[2021-10-20] VITALS: BP 130/77
[2021-10-20] MEDS: VANCOMYCIN 1GM/200ML IVPB 200 ML IV SCH ×2 (05:37→16:34)
[2021-10-20 06:04] LABS: BASOPHILS % (AUTO) 0.9 % (0-1); EOSINOPHILS # (AUTO) 0.2 X10'3 (0-0.9); EOSINOPHILS % (AUTO) 4.2 % (0-6); HEMATOCRIT 34.5 % (35.0-45.0); HEMOGLOBIN 11.2 g/dl (12.0-16.0); LYMPHOCYTES # (AUTO) 0.7 X10'3 (1.1-4.8); LYMPHOCYTES % (AUTO) 15.2 % (21-51); MEAN CORPUSCULAR HEMOGLOBIN 27.2 PG (27.0-31.0); MEAN CORPUSCULAR HGB CONC 32.4 g/dL (33.0-36.5); MEAN CORPUSCULAR VOLUME 84.1 FL (78-98); MEAN PLATELET VOLUME 7.7 FL (7.4-10.4); MONOCYTES # (AUTO) 0.4 X10'3 (0-0.9); MONOCYTES % (AUTO) 9.8 % (2-12); NEUTROPHILS # (AUTO) 3.2 X10'3 (1.8-7.7); NEUTROPHILS % (AUTO) 69.9 % (42-75); PLATELET COUNT 318 X10'3 (140-440); RED BLOOD COUNT 4.11 X10'6 (4.20-5.60); RED CELL DISTRIBUTION WIDTH 17.1 % (11.5-14.5); WHITE BLOOD COUNT 4.5 X10'3 (4.5-11.0)
[2021-10-20 06:18] LABS: ALANINE AMINOTRANSFERASE 20 U/L (12-78); ALBUMIN 2.6 G/DL (3.4-5.0); ALBUMIN/GLOBULIN RATIO 0.6 (1.1-1.5); ALKALINE PHOSPHATASE 100 IU/L (46-116); ANION GAP 8 (8-16); ASPARTATE AMINO TRANSFERASE 14 U/L (10-37); BILIRUBIN,TOTAL 0.5 MG/DL (0.1-1.0); BLOOD UREA NITROGEN 11 MG/DL (7-18); BUN/CREATININE RATIO 15.9 (6.6-38.0); CALCIUM 8.7 MG/DL (8.5-10.1); CHLORIDE 103 MMOL/L (99-107); CREATININE 0.69 MG/DL (0.40-0.90); GLUCOSE 103 MG/DL (70-104); MAGNESIUM 1.9 MG/DL (1.5-2.4); POTASSIUM 3.7 MMOL/L (3.5-5.1); SODIUM 139 MMOL/L (135-145); TOTAL CARBON DIOXIDE 28.2 MMOL/L (24-32); TOTAL PROTEIN 7.3 G/DL (6.4-8.2); eGFR 89 ML/MIN
--- NOTE | 2021-10-20 06:19 | NUR ---
Problems reprioritized. Patient report given, questions answered & plan of care reviewed with JULIETH CA
--- NOTE | 2021-10-20 06:30 | NUR ---
Problems reprioritized. Patient report given, questions answered & plan of care reviewed with BETHEL CA.
[2021-10-20] MEDS: metroNIDAZOLE-Flagyl 750mg/NS 150 ML IV SCH ×3 (07:12→16:34)
[2021-10-20] MEDS: ciprofloxacin lact 400MG/200ML 200 ML IV SCH ×2 (07:12→20:48)
[2021-10-20] MEDS: docusate sod 100mg capsule PO SCH ×2 (07:12→20:50)
[2021-10-20 07:39] VITALS: BP 142/84
[2021-10-20] MEDS: K and/or MAG REPLACEMENT MC SCH ×2 (08:00→20:00)
[2021-10-20] MEDS: HYDROmorphone inj. 0.5 MG/0.5 ML DISP.SYRIN IV PRN ×2 (09:00→21:01)
--- NOTE | 2021-10-20 09:49 | NUR ---
wound cleaned and dressing done
[2021-10-20] MEDS ORDERED: iohexol 350 MG/ML 50ML vial IV ONE (10:52)
[2021-10-20] MEDS ORDERED: iohexol 350MG/ML 100ml bottle IV ONE (10:52)
[2021-10-20 11:00] VITALS: BP_SYST 106; BP_SYST 135; BP_DIAS 70; BP_DIAS 84
--- NOTE | 2021-10-20 11:35 | NUR ---
Patient in room DIVYA 345. I have received report from LANNY Carpenter and had the opportunity to ask questions and assume patient care.
--- NOTE | 2021-10-20 12:29 | NUR ---
Initial: Pt admit for LLE cellulitis with ulcerations. Wound care has been consulted, pending assessment at this time. Pt currently on a heart healthy diet and eating well, documented with 75-100% PO intake. No documented BM though pt receiving routine bowel care. No nutrition intervention implemented at this time. Will continue to follow and make recommendations as appropriate pending WOC assessment and further trends in PO intake. Recommendations: 1) Liberalize to regular diet given no significant cardiac hx 2) Monitor need for ONS/additional protein 3) Routine bowel care 4) Weekly scaled weights Addendum: 10/20/21 at [address] Amended: Links added.
--- NOTE | 2021-10-20 18:30 | NUR ---
Problems reprioritized. Patient report given, questions answered & plan of care reviewed with LANNY Hickey.
--- NOTE | 2021-10-20 18:51 | NUR ---
Patient in room DIVYA 345. I have received report from Judith Lentz and had the opportunity to ask questions and assume patient care. Addendum: 10/20/21 at 1851 by Edelmira Rodriguez RN Amended: Links added.
[2021-10-20 20:00] VITALS: BP 151/83
[2021-10-20] MEDS: enoxaparin 40mg/0.4ml syringe SQ SCH (20:49)
[2021-10-21 00:25] VITALS: BP 142/84
[2021-10-21] MEDS: metroNIDAZOLE-Flagyl 750mg/NS 150 ML IV SCH ×3 (01:09→15:48)
[2021-10-21] MEDS ORDERED: VANCOMYCIN LEVEL IV ONE (03:30)
[2021-10-21] MEDS: VANCOMYCIN 1GM/200ML IVPB 200 ML IV SCH (05:15)
[2021-10-21 06:07] LABS: BASOPHILS % (AUTO) 1.5 % (0-1); EOSINOPHILS # (AUTO) 0.2 X10'3 (0-0.9); EOSINOPHILS % (AUTO) 7.4 % (0-6); HEMATOCRIT 34.4 % (35.0-45.0); HEMOGLOBIN 11.2 g/dl (12.0-16.0); LYMPHOCYTES # (AUTO) 1.1 X10'3 (1.1-4.8); LYMPHOCYTES % (AUTO) 39.9 % (21-51); MEAN CORPUSCULAR HEMOGLOBIN 27.3 PG (27.0-31.0); MEAN CORPUSCULAR HGB CONC 32.5 g/dL (33.0-36.5); MEAN CORPUSCULAR VOLUME 84.1 FL (78-98); MEAN PLATELET VOLUME 7.7 FL (7.4-10.4); MONOCYTES # (AUTO) 0.3 X10'3 (0-0.9); NEUTROPHILS # (AUTO) 1.1 X10'3 (1.8-7.7); NEUTROPHILS % (AUTO) 39.2 % (42-75); PLATELET COUNT 332 X10'3 (140-440); RED BLOOD COUNT 4.08 X10'6 (4.20-5.60); RED CELL DISTRIBUTION WIDTH 17.3 % (11.5-14.5); WHITE BLOOD COUNT 2.8 X10'3 (4.5-11.0)
--- NOTE | 2021-10-21 06:10 | NUR ---
Patient in room DIVYA 345. I have received report from LANNY Hickey and had the opportunity to ask questions and assume patient care.
[2021-10-21 06:12] LABS: ALANINE AMINOTRANSFERASE 18 U/L (12-78); ALBUMIN 2.5 G/DL (3.4-5.0); ALBUMIN/GLOBULIN RATIO 0.5 (1.1-1.5); ALKALINE PHOSPHATASE 93 IU/L (46-116); ANION GAP 9 (8-16); ASPARTATE AMINO TRANSFERASE 11 U/L (10-37); BILIRUBIN,TOTAL 0.3 MG/DL (0.1-1.0); BLOOD UREA NITROGEN 16 MG/DL (7-18); CALCIUM 8.8 MG/DL (8.5-10.1); CHLORIDE 104 MMOL/L (99-107); GLUCOSE 125 MG/DL (70-104); MAGNESIUM 2.1 MG/DL (1.5-2.4); POTASSIUM 3.9 MMOL/L (3.5-5.1); SODIUM 140 MMOL/L (135-145); TOTAL CARBON DIOXIDE 27.3 MMOL/L (24-32); TOTAL PROTEIN 7.2 G/DL (6.4-8.2); VANCOMYCIN,TROUGH 11.5 UG/ML (6.0-14.0); eGFR 75 ML/MIN
--- NOTE | 2021-10-21 06:14 | NUR ---
Problems reprioritized. Patient report given, questions answered & plan of care reviewed with KARAN CA. Addendum: 10/21/21 at 0615 by Edelmira Rodriguez RN Amended: Links added.
[2021-10-21 06:30] VITALS: BP 168/101
[2021-10-21 06:53] LABS: TOTAL CELLS COUNTED 100
[2021-10-21 06:54] LABS: ANISOCYTOSIS 1+; ELLIPTOCYTES FEW; PLATELET ESTIMATE NORMAL; POLYCHROMASIA FEW; STOMATOCYTES FEW
[2021-10-21] MEDS: ciprofloxacin lact 400MG/200ML 200 ML IV SCH ×2 (07:41→19:24)
[2021-10-21] MEDS: HYDROmorphone inj. 0.5 MG/0.5 ML DISP.SYRIN IV PRN ×3 (07:42→21:57)
[2021-10-21] MEDS: K and/or MAG REPLACEMENT MC SCH ×2 (08:00→20:00)
[2021-10-21] MEDS: ondansetron/PF 4mg/2ml inj IV PRN (08:56)
[2021-10-21] MEDS: docusate sod 100mg capsule PO SCH ×2 (08:56→19:24)
[2021-10-21 11:00] VITALS: BP 141/94
[2021-10-21] MEDS ORDERED: ondansetron/PF 4mg/2ml inj IV PRN (12:00)
[2021-10-21] MEDS: metoclopramide 5 mg/ml inj IV PRN ×2 (12:19→19:24)
[2021-10-21] MEDS: VANCOmycin 1250MG/NS 250ml Bag 250 ML IV SCH (12:23)
[2021-10-21] MEDS: HYDROcodone/acetaminophen 5mg/325mg tablet PO PRN (18:02)
--- NOTE | 2021-10-21 18:10 | NUR ---
Problems reprioritized. Patient report given, questions answered & plan of care reviewed with LANNY Hickey.
[2021-10-21] MEDS: enoxaparin 40mg/0.4ml syringe SQ SCH (19:26)
[2021-10-21 20:00] VITALS: BP 122/78
--- NOTE | 2021-10-21 21:26 | NUR ---
PT RESTING NO CHANGES AT THIS TIME.
--- NOTE | 2021-10-21 22:00 | NUR ---
complaint of headache and medicated for this with diladid iv per request.
--- NOTE | 2021-10-21 23:05 | NUR ---
resting without s&s of distress appears comfortable.
[2021-10-22] VITALS (7 sets, daily range): BP systolic 93–176; BP diastolic 61–111
[2021-10-22] MEDS: metroNIDAZOLE-Flagyl 750mg/NS 150 ML IV SCH ×2 (00:26→08:01)
[2021-10-22] MEDS: VANCOmycin 1250MG/NS 250ml Bag 250 ML IV SCH ×2 (01:42→14:25)
--- NOTE | 2021-10-22 03:17 | NUR ---
resting eyes closed without changes. appears comfortable.
[2021-10-22] MEDS: HYDROcodone/acetaminophen 5mg/325mg tablet PO PRN ×3 (05:19→22:22)
--- NOTE | 2021-10-22 05:20 | NUR ---
pt medicated with norco for complaint of headache. tolerated well.
[2021-10-22 05:43] LABS: BASOPHILS % (AUTO) 0.7 % (0-1); EOSINOPHILS # (AUTO) 0.3 X10'3 (0-0.9); EOSINOPHILS % (AUTO) 7.8 % (0-6); HEMATOCRIT 39.7 % (35.0-45.0); HEMOGLOBIN 12.8 g/dl (12.0-16.0); LYMPHOCYTES # (AUTO) 1.4 X10'3 (1.1-4.8); LYMPHOCYTES % (AUTO) 35.9 % (21-51); MEAN CORPUSCULAR HEMOGLOBIN 27.5 PG (27.0-31.0); MEAN CORPUSCULAR HGB CONC 32.2 g/dL (33.0-36.5); MEAN CORPUSCULAR VOLUME 85.2 FL (78-98); MEAN PLATELET VOLUME 7.7 FL (7.4-10.4); MONOCYTES # (AUTO) 0.5 X10'3 (0-0.9); MONOCYTES % (AUTO) 12.4 % (2-12); NEUTROPHILS # (AUTO) 1.7 X10'3 (1.8-7.7); NEUTROPHILS % (AUTO) 43.2 % (42-75); PLATELET COUNT 352 X10'3 (140-440); RED BLOOD COUNT 4.67 X10'6 (4.20-5.60); RED CELL DISTRIBUTION WIDTH 17.3 % (11.5-14.5); WHITE BLOOD COUNT 3.8 X10'3 (4.5-11.0)
--- NOTE | 2021-10-22 06:18 | NUR ---
Problems reprioritized. Patient report given, questions answered & plan of care reviewed with LANNY VENEGAS. Addendum: 10/22/21 at 0618 by Edelmira Rodriguez RN Amended: Links added.
[2021-10-22 06:19] LABS: ALANINE AMINOTRANSFERASE 19 U/L (12-78); ALBUMIN 2.8 G/DL (3.4-5.0); ALBUMIN/GLOBULIN RATIO 0.5 (1.1-1.5); ALKALINE PHOSPHATASE 96 IU/L (46-116); ANION GAP 6 (8-16); ASPARTATE AMINO TRANSFERASE 14 U/L (10-37); BILIRUBIN,TOTAL 0.3 MG/DL (0.1-1.0); BLOOD UREA NITROGEN 14 MG/DL (7-18); BUN/CREATININE RATIO 18.9 (6.6-38.0); CALCIUM 9.1 MG/DL (8.5-10.1); CHLORIDE 104 MMOL/L (99-107); CREATININE 0.74 MG/DL (0.40-0.90); GLUCOSE 82 MG/DL (70-104); MAGNESIUM 2.1 MG/DL (1.5-2.4); POTASSIUM 4.4 MMOL/L (3.5-5.1); SODIUM 140 MMOL/L (135-145); eGFR 82 ML/MIN
--- NOTE | 2021-10-22 06:41 | NUR ---
Patient in room DIVYA 345. I have received report from LANNY Hickey and had the opportunity to ask questions and assume patient care.
[2021-10-22] MEDS: K and/or MAG REPLACEMENT MC SCH ×2 (08:00→20:00)
[2021-10-22] MEDS: ciprofloxacin lact 400MG/200ML 200 ML IV SCH (08:00)
[2021-10-22] MEDS: docusate sod 100mg capsule PO SCH ×2 (08:18→19:31)
--- NOTE | 2021-10-22 09:16 | NUR ---
Patients current blood pressure is 176/104. Patient refusing to take Hydralazine which is ordered prn Q6H prn for SBP greater than 160. Patient states she has a very bad headache and has had this headache for days. Patient advised the headache could be from her BP being elevated and the Hydralazine would help with that, also, patient was advised that having chronic high blood pressure makes her at higher risk for a stroke. Patient was agitated and still refusing mediation. Primary RN Altagracia is aware and spoke to patient and she is still refusing medication.
[2021-10-22] MEDS: HYDROmorphone inj. 0.5 MG/0.5 ML DISP.SYRIN IV PRN ×2 (10:20→12:09)
[2021-10-22] MEDS: hydrALAZINE 20mg/ml inj. IV PRN ×2 (10:21→22:34)
--- NOTE | 2021-10-22 11:15 | NUR ---
ANANTH TELLER COORDINATOR at bedside for dressing care. After applying thera honey alginate, pt began screaming to have the dressing removed due to burning pain. Yelling profanities at staff attempting to hep her. and accusing staff of "having something against Germans"
--- NOTE | 2021-10-22 11:33 | NUR ---
Student documentation:I have reviewed and agree with all interventions, assessments performed and documented by Ashwin Sosa.
--- NOTE | 2021-10-22 13:33 | NUR ---
WOUND INFECTION EDUCATION PROVIDED BY WOUND CARE 1. Patient instructed to call their primary doctor, or go the ED immediately if any of the following symptoms occur: * Increased pain in wound * Increase in drainage from the wound * Redness in the skin surrounding the wound * Warmth in the skin surrounding the wound * Bleeding from the wound * Temperature of 101 or greater 2. If any of these occur while in the hospital tell a nurse immediately. Addendum: 10/22/21 at 1334 by Palmira Josue RN Amended: Links added.
[2021-10-22] MEDS: ipratropium/albuterol 3ml nebule NEB PRN (16:41)
--- NOTE | 2021-10-22 18:16 | NUR ---
Problems reprioritized. Patient report given, questions answered & plan of care reviewed with LANNY Hickey.
--- NOTE | 2021-10-22 18:44 | NUR ---
Patient in room DIVYA 345. I have received report from LANNY VENEGAS and had the opportunity to ask questions and assume patient care. Addendum: 10/22/21 at 1845 by Edelmira Rodriguez RN Amended: Links added.
[2021-10-22] MEDS: enoxaparin 40mg/0.4ml syringe SQ SCH (19:31)
[2021-10-22] MEDS: ciprofloxacin 250mg tablet PO SCH (22:21)
--- NOTE | 2021-10-22 22:31 | NUR ---
pt c/o pain stated she has a headache caused by her tooth. showed Rn right lower back molar appears black and open. noted bp 165/93 and medicated with po [place] and Apresoline for this. pt states she wants to smoke a joint that her bp is low when she does and also wants a cigarette. pt then said she wanted to get up and walk in the halls.
--- NOTE | 2021-10-22 22:43 | NUR ---
pt had picked on a scab on her right lower arm and susan lewis per request, scab had not fully come off.
--- NOTE | 2021-10-22 22:46 | NUR ---
call to Dr Chowdhury regarding pt wanting something to curb smoking desire, stated he'd come up.
--- NOTE | 2021-10-22 22:55 | NUR ---
Dr Chowdhury came to the floor and received an order for nicotine patch. then after obtaining it and approved by pharmacy woke pt up who had just dozed off to give it to her.
[2021-10-22] MEDS: nicotine 21mg patch - 24 hr TD SCH (23:00)
--- NOTE | 2021-10-22 23:21 | NUR ---
bp now down to 122/65 and H[address] 113, pt now resting eyes closed.
[2021-10-23] MEDS ORDERED: VANCOMYCIN LEVEL IV ONE (00:30)
[2021-10-23] MEDS: VANCOmycin 1250MG/NS 250ml Bag 250 ML IV SCH ×2 (01:13→14:23)
[2021-10-23 01:32] LABS: BASOPHILS # (AUTO) 0.1 X10'3 (0-0.2); BASOPHILS % (AUTO) 1.3 % (0-1); EOSINOPHILS # (AUTO) 0.4 X10'3 (0-0.9); HEMATOCRIT 39.5 % (35.0-45.0); HEMOGLOBIN 13.1 g/dl (12.0-16.0); LYMPHOCYTES # (AUTO) 1.6 X10'3 (1.1-4.8); LYMPHOCYTES % (AUTO) 28.3 % (21-51); MEAN CORPUSCULAR HEMOGLOBIN 27.7 PG (27.0-31.0); MEAN CORPUSCULAR HGB CONC 33.3 g/dL (33.0-36.5); MEAN CORPUSCULAR VOLUME 83.3 FL (78-98); MEAN PLATELET VOLUME 7.6 FL (7.4-10.4); MONOCYTES # (AUTO) 0.5 X10'3 (0-0.9); MONOCYTES % (AUTO) 8.7 % (2-12); NEUTROPHILS # (AUTO) 3.1 X10'3 (1.8-7.7); NEUTROPHILS % (AUTO) 54.7 % (42-75); PLATELET COUNT 414 X10'3 (140-440); RED BLOOD COUNT 4.74 X10'6 (4.20-5.60); RED CELL DISTRIBUTION WIDTH 17.2 % (11.5-14.5); WHITE BLOOD COUNT 5.7 X10'3 (4.5-11.0)
[2021-10-23 01:41] LABS: ALANINE AMINOTRANSFERASE 21 U/L (12-78); ALBUMIN/GLOBULIN RATIO 0.6 (1.1-1.5); ALKALINE PHOSPHATASE 106 IU/L (46-116); ANION GAP 9 (8-16); ASPARTATE AMINO TRANSFERASE 16 U/L (10-37); BILIRUBIN,TOTAL 0.3 MG/DL (0.1-1.0); BLOOD UREA NITROGEN 16 MG/DL (7-18); BUN/CREATININE RATIO 17.2 (6.6-38.0); CALCIUM 9.3 MG/DL (8.5-10.1); CHLORIDE 103 MMOL/L (99-107); CREATININE 0.93 MG/DL (0.40-0.90); GLUCOSE 116 MG/DL (70-104); MAGNESIUM 2.2 MG/DL (1.5-2.4); SODIUM 138 MMOL/L (135-145); TOTAL CARBON DIOXIDE 26.1 MMOL/L (24-32); TOTAL PROTEIN 7.7 G/DL (6.4-8.2); VANCOMYCIN,TROUGH 16.4 UG/ML (6.0-14.0); eGFR 63 ML/MIN
--- NOTE | 2021-10-23 06:39 | NUR ---
Problems reprioritized. Patient report given, questions answered & plan of care reviewed with LANYN NGUYEN. Addendum: 10/23/21 at 0639 by Edelmira Rodriguez RN Amended: Links added.
[2021-10-23 07:54] VITALS: BP 117/68
[2021-10-23] MEDS: K and/or MAG REPLACEMENT MC SCH ×2 (08:00→20:00)
[2021-10-23] MEDS: docusate sod 100mg capsule PO SCH ×2 (08:10→19:42)
[2021-10-23] MEDS: nicotine 21mg patch - 24 hr TD SCH (08:12)
[2021-10-23] MEDS: ciprofloxacin 250mg tablet PO SCH ×2 (10:14→22:10)
[2021-10-23 12:00] VITALS: BP 138/84
[2021-10-23] MEDS: HYDROcodone/acetaminophen 5mg/325mg tablet PO PRN ×2 (14:22→19:47)
--- NOTE | 2021-10-23 15:09 | NUR ---
Advised Radha with case management the egg caser at [facility] wants to speak with her. Radha will call them back at [phone]
--- NOTE | 2021-10-23 16:01 | NUR ---
PICC team paged for PIV. Patient refusing nursing staff to attempt IV access, says it is too painful and wants US guided.
--- NOTE | 2021-10-23 16:03 | NUR ---
PAGER ID: [phone] MESSAGE: [id number]. Patient said she talked to you about pain in right lower molar. Wanted to make sure you are aware. Justina CA [id number]
--- NOTE | 2021-10-23 18:35 | NUR ---
Patient in room DIVYA 345. I have received report from Justina CA and had the opportunity to ask questions and assume patient care.
--- NOTE | 2021-10-23 18:41 | NUR ---
Patient says she spoke to Dr. Norton regarding right lower molar pain, she was also paged by me. Spoke to bilingual patient support caseworker over at [facility], she is aware social services is on her case and social services was informed she would like patient's care coordinated with her. Wound dressing was changed today. Patient only required norco once with me.
--- NOTE | 2021-10-23 18:45 | NUR ---
Problems reprioritized. Patient report given, questions answered & plan of care reviewed with Huang CA.
[2021-10-23] MEDS: enoxaparin 40mg/0.4ml syringe SQ SCH (19:43)
[2021-10-23 20:00] VITALS: BP 132/96
[2021-10-23] MEDS: ipratropium/albuterol 3ml nebule NEB PRN (20:17)
[2021-10-24] VITALS: BP 116/75
[2021-10-24 06:02] LABS: BASOPHILS # (AUTO) 0.1 X10'3 (0-0.2); BASOPHILS % (AUTO) 1.3 % (0-1); EOSINOPHILS # (AUTO) 0.3 X10'3 (0-0.9); EOSINOPHILS % (AUTO) 7.3 % (0-6); HEMATOCRIT 41.9 % (35.0-45.0); HEMOGLOBIN 13.7 g/dl (12.0-16.0); LYMPHOCYTES % (AUTO) 42.2 % (21-51); MEAN CORPUSCULAR HEMOGLOBIN 27.4 PG (27.0-31.0); MEAN CORPUSCULAR HGB CONC 32.8 g/dL (33.0-36.5); MEAN CORPUSCULAR VOLUME 83.5 FL (78-98); MEAN PLATELET VOLUME 7.6 FL (7.4-10.4); MONOCYTES # (AUTO) 0.5 X10'3 (0-0.9); NEUTROPHILS # (AUTO) 1.8 X10'3 (1.8-7.7); NEUTROPHILS % (AUTO) 39.2 % (42-75); PLATELET COUNT 472 X10'3 (140-440); RED BLOOD COUNT 5.01 X10'6 (4.20-5.60); RED CELL DISTRIBUTION WIDTH 17.4 % (11.5-14.5); WHITE BLOOD COUNT 4.7 X10'3 (4.5-11.0)
[2021-10-24 06:24] LABS: ALANINE AMINOTRANSFERASE 17 U/L (12-78); ALBUMIN 2.9 G/DL (3.4-5.0); ALBUMIN/GLOBULIN RATIO 0.5 (1.1-1.5); ALKALINE PHOSPHATASE 93 IU/L (46-116); ANION GAP 12 (8-16); ASPARTATE AMINO TRANSFERASE 12 U/L (10-37); BILIRUBIN,TOTAL 0.3 MG/DL (0.1-1.0); BLOOD UREA NITROGEN 15 MG/DL (7-18); BUN/CREATININE RATIO 20.8 (6.6-38.0); CALCIUM 9.4 MG/DL (8.5-10.1); CHLORIDE 103 MMOL/L (99-107); CREATININE 0.72 MG/DL (0.40-0.90); GLUCOSE 113 MG/DL (70-104); MAGNESIUM 2.1 MG/DL (1.5-2.4); POTASSIUM 4.2 MMOL/L (3.5-5.1); SODIUM 139 MMOL/L (135-145); TOTAL PROTEIN 8.2 G/DL (6.4-8.2); eGFR 85 ML/MIN
--- NOTE | 2021-10-24 06:29 | NUR ---
Problems reprioritized. Patient report given, questions answered & plan of care reviewed with Justina CA..
[2021-10-24 07:10] VITALS: BP 112/70
[2021-10-24] MEDS: nicotine 21mg patch - 24 hr TD SCH (07:13)
[2021-10-24] MEDS: docusate sod 100mg capsule PO SCH ×2 (07:13→19:40)
[2021-10-24] MEDS: linezolid 600mg tablet PO SCH ×2 (07:14→19:40)
[2021-10-24] MEDS: K and/or MAG REPLACEMENT MC SCH ×2 (08:00→20:00)
--- NOTE | 2021-10-24 11:19 | NUR ---
Patient is refusing wound care at the moment since she was told she would be discharged today with respite care and someone there would do her wound care.
--- NOTE | 2021-10-24 11:49 | NUR ---
Zyvox consult: Pt continues on heart healthy diet w/ mostly 100% PO intake meals, w/ recent 50% last two meals and meeting estimated nutrient needs. Per WOC note pt w/ full thickness anterior L lower leg venous ulcer, 13.6cm x 13.2cm x 0.4cm and full thickness L lateral lower leg venous ulcer, 9cm x 3.8cm x 0.2cm. LBM 10/23, receiving routine colace per EMR. Pt receiving Zyvox, seen at bedside and received [place] diet education by internet sales manager. No nutrition intervention implemented at this time. Will continue to follow. Recommendations: 1) Liberalize to regular diet given no significant cardiac hx 2) Monitor need for ONS/additional protein 3) Routine bowel care 4) Weekly scaled weights Addendum: 10/24/21 at [address] Amended: Links added. Addendum: 10/24/21 at [address]ás [address] RD I have reviewed assessment by internet sales manager
[2021-10-24 12:00] VITALS: BP 127/91
--- NOTE | 2021-10-24 13:10 | NUR ---
expeller worker paged regarding update with respite care.
--- NOTE | 2021-10-24 13:36 | NUR ---
PAGER ID: [phone] MESSAGE: [phone]. Patient is asking for meth withdrawal management. Justina CA [id number]
--- NOTE | 2021-10-24 13:40 | NUR ---
PAGER ID: [phone] MESSAGE: [id number]. Patient would like withdrawal management and has questions regarding right lower molar pain. Justina CA [phone]
[2021-10-24] MEDS: ondansetron/PF 4mg/2ml inj IV PRN (13:52)
--- NOTE | 2021-10-24 16:24 | NUR ---
PAGER ID: [phone] MESSAGE: [phone]. Can we get anxiety medication orders. Justina CA 2515
[2021-10-24] MEDS: ALPRAZolam 0.25mg tablet PO PRN (17:04)
--- NOTE | 2021-10-24 18:28 | NUR ---
Problems reprioritized. Patient report given, questions answered & plan of care reviewed with Oc CA.
[2021-10-24] MEDS: HYDROcodone/acetaminophen 5mg/325mg tablet PO PRN (19:41)
[2021-10-24] MEDS: enoxaparin 40mg/0.4ml syringe SQ SCH (19:42)
[2021-10-24] MEDS ORDERED: temazepam 15mg capsule PO ONE (21:05)
[2021-10-25] VITALS: BP 129/83
[2021-10-25] MEDS ORDERED: VANCOMYCIN LEVEL IV ONE (00:30)
--- NOTE | 2021-10-25 06:28 | NUR ---
Patient in room DIVYA 345. I have received report from LANNY Renae and had the opportunity to ask questions and assume patient care.
--- NOTE | 2021-10-25 06:42 | NUR ---
Problems reprioritized. Patient report given, questions answered & plan of care reviewed with LANNY Lopez. Patient remains stable at this time.
[2021-10-25] MEDS: docusate sod 100mg capsule PO SCH ×2 (08:00→19:10)
[2021-10-25 08:05] VITALS: BP 125/73
[2021-10-25 08:08] VITALS: BP 127/89
[2021-10-25] MEDS: ALPRAZolam 0.25mg tablet PO PRN ×2 (08:28→17:43)
[2021-10-25] MEDS: HYDROcodone/acetaminophen 5mg/325mg tablet PO PRN ×2 (08:29→16:06)
[2021-10-25] MEDS: linezolid 600mg tablet PO SCH ×2 (08:29→19:10)
[2021-10-25] MEDS: nicotine 21mg patch - 24 hr TD SCH (08:30)
[2021-10-25] MEDS: K and/or MAG REPLACEMENT MC SCH ×2 (08:55→19:12)
[2021-10-25 11:26] VITALS: BP 115/83
[2021-10-25 18:00] VITALS: BP 119/83
[2021-10-26] VITALS: BP 108/87
--- NOTE | 2021-10-26 06:12 | NUR ---
Patient in room DIVYA 345. I have received report from LANNY Renae and had the opportunity to ask questions and assume patient care.
[2021-10-26 06:22] LABS: BASOPHILS # (AUTO) 0.1 X10'3 (0-0.2); EOSINOPHILS # (AUTO) 0.3 X10'3 (0-0.9); HEMATOCRIT 42.4 % (35.0-45.0); HEMOGLOBIN 13.5 g/dl (12.0-16.0); LYMPHOCYTES # (AUTO) 2.5 X10'3 (1.1-4.8); LYMPHOCYTES % (AUTO) 49.8 % (21-51); MEAN CORPUSCULAR HEMOGLOBIN 26.7 PG (27.0-31.0); MEAN CORPUSCULAR HGB CONC 31.9 g/dL (33.0-36.5); MEAN PLATELET VOLUME 7.7 FL (7.4-10.4); MONOCYTES # (AUTO) 0.6 X10'3 (0-0.9); MONOCYTES % (AUTO) 11.9 % (2-12); NEUTROPHILS # (AUTO) 1.5 X10'3 (1.8-7.7); NEUTROPHILS % (AUTO) 30.3 % (42-75); PLATELET COUNT 380 X10'3 (140-440); RED BLOOD COUNT 5.05 X10'6 (4.20-5.60); RED CELL DISTRIBUTION WIDTH 17.4 % (11.5-14.5)
[2021-10-26 06:30] LABS: PRE OP PROTIME 10.3 SECONDS (9.0-12.0)
--- NOTE | 2021-10-26 06:40 | NUR ---
Problems reprioritized. Patient report given, questions answered & plan of care reviewed with Rosalba RN, for continuation of care. Patient remains stable at this time. All pre-operative protocol in place for surgery at 0100.
[2021-10-26 06:48] LABS: ALANINE AMINOTRANSFERASE 15 U/L (12-78); ALBUMIN 3.1 G/DL (3.4-5.0); ALBUMIN/GLOBULIN RATIO 0.6 (1.1-1.5); ALKALINE PHOSPHATASE 88 IU/L (46-116); ANION GAP 13 (8-16); ASPARTATE AMINO TRANSFERASE 11 U/L (10-37); BILIRUBIN,TOTAL 0.3 MG/DL (0.1-1.0); BLOOD UREA NITROGEN 21 MG/DL (7-18); BUN/CREATININE RATIO 25.3 (6.6-38.0); CALCIUM 9.3 MG/DL (8.5-10.1); CHLORIDE 105 MMOL/L (99-107); CREATININE 0.83 MG/DL (0.40-0.90); GLUCOSE 98 MG/DL (70-104); POTASSIUM 4.3 MMOL/L (3.5-5.1); SODIUM 142 MMOL/L (135-145); TOTAL CARBON DIOXIDE 24.5 MMOL/L (24-32); TOTAL PROTEIN 8.1 G/DL (6.4-8.2); eGFR 72 ML/MIN
[2021-10-26 07:41] VITALS: BP 122/87
[2021-10-26] MEDS: nicotine 21mg patch - 24 hr TD SCH (07:58)
[2021-10-26] MEDS: docusate sod 100mg capsule PO SCH ×2 (07:59→20:00)
[2021-10-26] MEDS: K and/or MAG REPLACEMENT MC SCH ×2 (08:11→20:00)
[2021-10-26] MEDS: ALPRAZolam 0.25mg tablet PO PRN ×2 (09:40→20:13)
[2021-10-26 12:00] VITALS: BP 110/85
[2021-10-26] MEDS: HYDROcodone/acetaminophen 5mg/325mg tablet PO PRN (16:20)
[2021-10-26 18:00] VITALS: BP 138/88
--- NOTE | 2021-10-26 18:12 | NUR ---
Problems reprioritized. Patient report given, questions answered & plan of care reviewed with LANNY Renae.
[2021-10-27] VITALS (12 sets, daily range): BP systolic 126–160; BP diastolic 79–101
--- NOTE | 2021-10-27 06:33 | NUR ---
Patient in room DIVYA 345. I have received report from VERNON CA and had the opportunity to ask questions and assume patient care.
[2021-10-27 06:37] LABS: PRE OP PROTIME 10.2 SECONDS (9.0-12.0)
--- NOTE | 2021-10-27 06:42 | NUR ---
Problems reprioritized. Patient report given, questions answered & plan of care reviewed with LANNY Costello. Patient going to surgery this AM, all pre-op protocol in place.
[2021-10-27 06:46] LABS: BASOPHILS # (AUTO) 0.1 X10'3 (0-0.2); BASOPHILS % (AUTO) 1.2 % (0-1); EOSINOPHILS # (AUTO) 0.3 X10'3 (0-0.9); LYMPHOCYTES # (AUTO) 2.5 X10'3 (1.1-4.8); LYMPHOCYTES % (AUTO) 52.4 % (21-51); MEAN CORPUSCULAR HEMOGLOBIN 27.6 PG (27.0-31.0); MEAN CORPUSCULAR HGB CONC 32.9 g/dL (33.0-36.5); MEAN CORPUSCULAR VOLUME 83.9 FL (78-98); MEAN PLATELET VOLUME 7.7 FL (7.4-10.4); MONOCYTES # (AUTO) 0.4 X10'3 (0-0.9); MONOCYTES % (AUTO) 9.2 % (2-12); NEUTROPHILS # (AUTO) 1.5 X10'3 (1.8-7.7); NEUTROPHILS % (AUTO) 31.2 % (42-75); PRE OP HEMATOCRIT 38.8 % (35.0-45.0); PRE OP HEMOGLOBIN 12.8 g/dL (12.0-16.0); PRE OP PLATELET COUNT 359 X10'3 (140-440); RED BLOOD COUNT 4.62 X10'6 (4.20-5.60); RED CELL DISTRIBUTION WIDTH 17.7 % (11.5-14.5)
[2021-10-27 06:50] LABS: ALBUMIN 2.9 G/DL (3.4-5.0); ALBUMIN/GLOBULIN RATIO 0.6 (1.1-1.5); ALKALINE PHOSPHATASE 79 IU/L (46-116); BLOOD UREA NITROGEN 18 MG/DL (7-18); BUN/CREATININE RATIO 25.4 (6.6-38.0); CHLORIDE 105 MMOL/L (99-107); CREATININE 0.71 MG/DL (0.40-0.90); PRE OP ALT 17 U/L (30-65); PRE OP ANION GAP 12 (8-16); PRE OP AST 11 U/L (10-37); PRE OP BILIRUB, TOTAL 0.2 MG/DL (0.0-1.0); PRE OP GLUCOSE 101 MG/DL (70-104); PRE OP SODIUM 143 MMOL/L (135-145); TOTAL CARBON DIOXIDE 25.9 MMOL/L (24-32); TOTAL PROTEIN 7.6 G/DL (6.4-8.2); eGFR 86 ML/MIN
[2021-10-27] MEDS ORDERED: BUPIVAcaine 0.5% inj/PF 30 ML ONE (07:18)
[2021-10-27] MEDS: docusate sod 100mg capsule PO SCH ×2 (08:00→19:16)
[2021-10-27] MEDS: K and/or MAG REPLACEMENT MC SCH ×2 (08:00→20:00)
[2021-10-27] MEDS ORDERED: midazolam 1 mg/ML 2ml injection ONE (08:03)
[2021-10-27] MEDS ORDERED: fentaNYL /PF 50mcg/ml 5ml ampule ONE (08:07)
[2021-10-27 08:10] LABS: ANISOCYTOSIS 1+; PLATELET ESTIMATE NORMAL; TOTAL CELLS COUNTED 100
[2021-10-27] MEDS ORDERED: LIDOcaine 2% (20mg/ml) 5ml vial ONE (08:10)
[2021-10-27] MEDS ORDERED: vancomycin 1,000mg inj ONE ×2 (08:10→08:33)
[2021-10-27] MEDS ORDERED: ondansetron/PF 4mg/2ml inj ONE (08:10)
[2021-10-27] MEDS ORDERED: propofol inj 20 ML IV ONE (08:10)
[2021-10-27] MEDS ORDERED: dexamethasone sod phosphate 4mg/ml inj. ONE (08:10)
--- NOTE | 2021-10-27 09:05 | NUR ---
Received from OR via bed, accompanied by Anesthesiologist regina and report given by Anesthesiolgist. pt drowsy, oxygenating well on 10 lpm o2 via mask, no resp distress noted. pt denies nausea, c/o severe 10/10 pain to l ankle area. gatched bed and propped lle on pillow to help with swelling and pain. mahsa bandage covering dsg from toes to knee on lle. toes pwd on surgical side. no rand, vss, some htn. will continue to monitor.
[2021-10-27] MEDS ORDERED: meperidine/PF 25mg/ml syringe ONE (09:09)
[2021-10-27] MEDS ORDERED: morphine 2 MG/ML inj. syringe IV PRN (09:10)
[2021-10-27] MEDS ORDERED: ketorolac trometh. 30mg/ml inj. IV ONE (09:10)
[2021-10-27] MEDS ORDERED: ondansetron/PF 4mg/2ml inj IV PRN (09:10)
[2021-10-27] MEDS ORDERED: labetalol 20mg/4ml (5mg/ml) syringe IV PRN (09:10)
[2021-10-27] MEDS ORDERED: ringers solution, lacted 1,000 ML IV SCH (09:10)
[2021-10-27] MEDS ORDERED: meperidine/PF 25mg/ml syringe IV PRN ×3 (09:10)
[2021-10-27] MEDS ORDERED: acetaminophen 1,000mg/100ml IV 100 ML IV PRN (09:10)
[2021-10-27] MEDS ORDERED: morphine 4 MG/ML inj SYRINge IV PRN (09:10)
[2021-10-27] MEDS ORDERED: hydrALAZINE 20mg/ml inj. IV PRN (09:10)
[2021-10-27] MEDS ORDERED: proCHLORperazine 10 MG/2 ml inj IV PRN (09:10)
[2021-10-27] MEDS: HYDROcodone/acetaminophen 5mg/325mg tablet PO PRN ×2 (10:12→19:21)
--- NOTE | 2021-10-27 10:30 | NUR ---
Report called to receiving nurse. Transferred via bed Belongings in pt room. pain level slowly trending down after meds given in pacu. vss. tolerating po fluids well. transferred back to 3 surg in stable condition. Special Issues communicated to receiving nurse.
[2021-10-27] MEDS ORDERED: VANCOMYCIN 750MG IV in NS 250 ML IV ONE (12:00)
[2021-10-27] MEDS: HYDROmorphone 1 mg/ml syringe IV PRN (12:04)
[2021-10-27] MEDS: nicotine 21mg patch - 24 hr TD SCH (12:04)
[2021-10-27] MEDS: aztreonam inj. 2,000 MG in dextrose 5%-water 100 ML IV SCH ×2 (12:43→23:10)
[2021-10-27] MEDS: ALPRAZolam 0.25mg tablet PO PRN (13:59)
--- NOTE | 2021-10-27 18:11 | NUR ---
Problems reprioritized. Patient report given, questions answered & plan of care reviewed with VERNON CA.
[2021-10-28] VITALS: BP 129/84
[2021-10-28] MEDS: vancomycin/NS 1 GM ADD-VANTAGE 250 ML IV SCH ×2 (00:16→12:45)
[2021-10-28] MEDS: ALPRAZolam 0.25mg tablet PO PRN ×3 (01:05→23:30)
[2021-10-28] MEDS: HYDROcodone/acetaminophen 5mg/325mg tablet PO PRN ×2 (01:07→23:30)
[2021-10-28] MEDS ORDERED: normal saline 500ml IV soln 500 ML IV ONE (05:45)
--- NOTE | 2021-10-28 06:29 | NUR ---
Patient in room DIVYA 345. I have received report from Oc CA and had the opportunity to ask questions and assume patient care.
--- NOTE | 2021-10-28 06:35 | NUR ---
Blood observed on the stool at 0530 , made aware and ordered the 0.9% Normal saline 500ml bolus, and also ordered to type and screen the patient. Problems reprioritized. Patient report given, questions answered & plan of care reviewed with LANNY Nielsen for continuation of care.
[2021-10-28 07:24] VITALS: BP 147/80
[2021-10-28] MEDS: K and/or MAG REPLACEMENT MC SCH ×2 (08:00→19:59)
[2021-10-28] MEDS: aztreonam inj. 2,000 MG in dextrose 5%-water 100 ML IV SCH ×3 (09:28→23:23)
[2021-10-28] MEDS: nicotine 21mg patch - 24 hr TD SCH (09:29)
[2021-10-28] MEDS: docusate sod 100mg capsule PO SCH ×2 (09:29→19:59)
[2021-10-28] MEDS: HYDROmorphone 1 mg/ml syringe IV PRN ×2 (09:39→17:09)
[2021-10-28 11:00] VITALS: BP 123/73
[2021-10-28] MEDS: ipratropium/albuterol 3ml nebule NEB PRN (14:30)
--- NOTE | 2021-10-28 17:13 | NUR ---
PAGER ID: [phone] MESSAGE: Pravin Surg [phone] RE: [phone] Noemi, S Patient refuse [place] and only request Dilaudid, tried to teach about decreasing pain med use. Can we DC dilaudid and add [place] 10 for severe pain.
--- NOTE | 2021-10-28 17:32 | NUR ---
Student documentation: I have reviewed and agree with all interventions, assessments performed and documented by Kimberley KIMBLE. Student Medication Administration: For this medication-pass time frame, all medication were reviewed, dispensed, administered and documented per hospital policy by Kimberley KIMBLE.
--- NOTE | 2021-10-28 17:46 | NUR ---
PAGER ID: [phone] MESSAGE: Pravin Surg [phone] RE: [phone] Noemi, S Patient refuse [place] and only request Dilaudid, tried to teach about decreasing pain med use. Can we DC dilaudid and add [place] 10 for severe pain.
[2021-10-28] MEDS ORDERED: HYDROcodone/acetaminophen 10/325mg tab PO PRN (17:50)
[2021-10-28 18:00] VITALS: BP 110/68
--- NOTE | 2021-10-28 18:05 | NUR ---
Patient in room DIVYA 345A. I have received report from Pravin, RN and Kimberley, Student Nurse and had the opportunity to ask questions and assume patient care.
--- NOTE | 2021-10-28 18:15 | NUR ---
Problems reprioritized. Patient report given, questions answered & plan of care reviewed with LANNY Sifuentes.
[2021-10-28] MEDS ORDERED: enoxaparin 40mg/0.4ml syringe SUBCUT SCH (20:00)
[2021-10-28 23:32] VITALS: BP 118/80
[2021-10-29] MEDS: vancomycin/NS 1 GM ADD-VANTAGE 250 ML IV SCH ×2 (00:18→12:00)
--- NOTE | 2021-10-29 06:19 | NUR ---
Problems reprioritized. Patient report given, questions answered & plan of care reviewed with LANNY Partida.
[2021-10-29 07:00] VITALS: BP 123/81
[2021-10-29] MEDS: aztreonam inj. 2,000 MG in normal saline 100ml IV soln 100 ML IV SCH ×2 (08:29→16:00)
[2021-10-29] MEDS: docusate sod 100mg capsule PO SCH (08:30)
[2021-10-29] MEDS: K and/or MAG REPLACEMENT MC SCH (08:30)
[2021-10-29] MEDS: nicotine 21mg patch - 24 hr TD SCH (08:30)
--- NOTE | 2021-10-29 08:51 | NUR ---
Reassessment: Pt continues on heart healthy diet w/ mostly 100% PO intake meals, meeting est nutrient needs at this time. Per EMR, pt had hardware removed from L ankle 10/27 LBM 10/27, receiving routine colace. No nutrition intervention implemented at this time. Will continue to follow. Recommendations: 1) Liberalize to regular diet given no significant cardiac hx 2) Monitor need for ONS/additional protein 3) Routine bowel care 4) Weekly scaled weights Addendum: 10/29/21 at [address] Amended: Links added.
[2021-10-29] MEDS: ALPRAZolam 0.25mg tablet PO PRN ×2 (10:39→19:06)
[2021-10-29 11:00] VITALS: BP 132/89
[2021-10-29] MEDS ORDERED: VANCOMYCIN LEVEL IV ONE (11:30)
[2021-10-29 11:55] LABS: BASOPHILS # (AUTO) 0.1 X10'3 (0-0.2); EOSINOPHILS # (AUTO) 0.2 X10'3 (0-0.9); HEMOGLOBIN 11.5 g/dl (12.0-16.0); LYMPHOCYTES # (AUTO) 1.6 X10'3 (1.1-4.8); MONOCYTES # (AUTO) 0.6 X10'3 (0-0.9); RED CELL DISTRIBUTION WIDTH 17.8 % (11.5-14.5)
[2021-10-29 11:56] LABS: BASOPHILS % (AUTO) 2.1 % (0-1); EOSINOPHILS % (AUTO) 4.9 % (0-6); HEMATOCRIT 35.4 % (35.0-45.0); LYMPHOCYTES % (AUTO) 32.7 % (21-51); MEAN CORPUSCULAR HEMOGLOBIN 27.5 PG (27.0-31.0); MEAN CORPUSCULAR HGB CONC 32.5 g/dL (33.0-36.5); MEAN CORPUSCULAR VOLUME 84.5 FL (78-98); MEAN PLATELET VOLUME 7.6 FL (7.4-10.4); MONOCYTES % (AUTO) 12.2 % (2-12); NEUTROPHILS # (AUTO) 2.3 X10'3 (1.8-7.7); NEUTROPHILS % (AUTO) 48.1 % (42-75); PLATELET COUNT 324 X10'3 (140-440); RED BLOOD COUNT 4.19 X10'6 (4.20-5.60); WHITE BLOOD COUNT 4.8 X10'3 (4.5-11.0)
[2021-10-29 12:08] LABS: ALBUMIN 2.7 G/DL (3.4-5.0); ANION GAP 10 (8-16); BLOOD UREA NITROGEN 13 MG/DL (7-18); BUN/CREATININE RATIO 20.6 (6.6-38.0); CALCIUM 8.8 MG/DL (8.5-10.1); CHLORIDE 106 MMOL/L (99-107); CREATININE 0.63 MG/DL (0.40-0.90); GLUCOSE 113 MG/DL (70-104); POTASSIUM 4.2 MMOL/L (3.5-5.1); SODIUM 142 MMOL/L (135-145); TOTAL CARBON DIOXIDE 26.5 MMOL/L (24-32); VANCOMYCIN,TROUGH 15.3 UG/ML (6.0-14.0); eGFR > 90 ML/MIN
[2021-10-29 18:00] VITALS: BP 167/108
--- NOTE | 2021-10-29 19:33 | NUR ---
Patient anxious about going to LTC especially because she will not have freedom to smoke and bring her dog to the facility.Local Company Tanker Driver spoke with patient and she was calm and receptive and was ready to transition to rehab.Patient's BP was elevated D/T anxiety and Xanax 0.5 mg P.O was administered before she left.Report called to receiving RN Dc at [facility].All belongings and paper work given to transport personnel.Patient left at 1925 via gurney accompanied by two transport staff.
== END 2021-10-29 19:48 | DRG 464 ==
LOC: ER 11:03 → ED HOLD 15:44 → EDBEDREQ 16:22 → SUR 3N 17:34
PROVIDERS: ADMIT Family Medicine; ATTEND Family Medicine
PROC: BQ2S1ZZ Computerized Tomography (CT Scan) of Left Lower Extremity using Low Osmolar Contrast (ICD-10-PCS; 2021-10-19)
PROC: B4201ZZ Computerized Tomography (CT Scan) of Abdominal Aorta using Low Osmolar Contrast (ICD-10-PCS; 2021-10-20)
PROC: B42H1ZZ Computerized Tomography (CT Scan) of Bilateral Lower Extremity Arteries using Low Osmolar Contrast (ICD-10-PCS; 2021-10-20)
PROC: 0JBP0ZZ Excision of Left Lower Leg Subcutaneous Tissue and Fascia, Open Approach (ICD-10-PCS; 2021-10-27)
PROC: 0QPH04Z Removal of Internal Fixation Device from Left Tibia, Open Approach (ICD-10-PCS; 2021-10-27)
PROC: 0QPK04Z Removal of Internal Fixation Device from Left Fibula, Open Approach (ICD-10-PCS; principal; 2021-10-27 07:47)
PROC: 02HV33Z Insertion of Infusion Device into Superior Vena Cava, Percutaneous Approach (ICD-10-PCS; 2021-10-29)
PROC: B548ZZA Ultrasonography of Superior Vena Cava, Guidance (ICD-10-PCS; 2021-10-29)
DX: T84.59XA Infection and inflammatory reaction due to other internal joint prosthesis, initial encounter (principal); L97.929 Non-pressure chronic ulcer of unspecified part of left lower leg with unspecified severity; L03.116 Cellulitis of left lower limb; I82.502 Chronic embolism and thrombosis of unspecified deep veins of left lower extremity; I82.723 Chronic embolism and thrombosis of deep veins of upper extremity, bilateral; M86.8X6 Other osteomyelitis, lower leg; J44.9 Chronic obstructive pulmonary disease, unspecified; M17.10 Unilateral primary osteoarthritis, unspecified knee; I87.8 Other specified disorders of veins; F15.10 Other stimulant abuse, uncomplicated; F17.210 Nicotine dependence, cigarettes, uncomplicated; E66.9 Obesity, unspecified; Z20.822 Contact with and (suspected) exposure to COVID-19; F41.9 Anxiety disorder, unspecified; G47.00 Insomnia, unspecified; R59.0 Localized enlarged lymph nodes; I10 Essential (primary) hypertension; Y83.8 Other surgical procedures as the cause of abnormal reaction of the patient, or of later complication, without mention of misadventure at the time of the procedure; Z59.00 Homelessness unspecified; Z68.30 Body mass index [BMI] 30.0-30.9, adult; Z80.8 Family history of malignant neoplasm of other organs or systems; Z82.49 Family history of ischemic heart disease and other diseases of the circulatory system; Z82.5 Family history of asthma and other chronic lower respiratory diseases; Z88.0 Allergy status to penicillin; Z88.1 Allergy status to other antibiotic agents; Z28.21 Immunization not carried out because of patient refusal; Z88.8 Allergy status to other drugs, medicaments and biological substances; Z79.899 Other long term (current) drug therapy; Z71.6 Tobacco abuse counseling; Z71.51 Drug abuse counseling and surveillance of drug abuser; Y92.89 Other specified places as the place of occurrence of the external cause
CPT/HCPCS: 36415; 36569; 71045; 73590; 73600; 73701; 75635; 76000; 76942; 80048; 80053; 80202; 82948; 83605; 83735; 84145; 85007; 85025; 85610; 85651; 85730; 86140; 87040; 87070; 87075; 87081; 87635; 90732; 93005; 94640; 94760; 96374; 97161; 97530; 99285; A4618; A6222; A6449; A7000; G0378; J0131; J0360; J0744; J1100; J1170; J1650; J1885; J2175; J2250; J2270; J2405; J2704; J2765; J3010; J3370; J3490; J7050; J7060; J7120; Q9967; S0020

== ENCOUNTER 2021-12-31 18:28 | Emergency (ER) | payer MEDICARE, MEDICAID ==
[~2021-12-31] VITALS: Ht 167.6 cm; Wt 95.0 kg
[~2021-12-31 18:28] MED LIST changes: +ALBU18HF2; -ALBU8.5H17 INH; -AMLO2.5T12 PO; -AZIT-83 PO; -LACT1CAP26 PO; -PANT40TA54 PO; -PRED50TA PO
[2021-12-31 18:58] VITALS: BP 121/80
== END 2021-12-31 21:09 | disposition home or self-care (01) ==
LOC: ER 18:28
DX: S86.912A Strain of unspecified muscle(s) and tendon(s) at lower leg level, left leg, initial encounter (principal); M25.552 Pain in left hip; F15.90 Other stimulant use, unspecified, uncomplicated; Z59.00 Homelessness unspecified; Z88.0 Allergy status to penicillin; Z88.1 Allergy status to other antibiotic agents; Z88.8 Allergy status to other drugs, medicaments and biological substances; W01.0XXA Fall on same level from slipping, tripping and stumbling without subsequent striking against object, initial encounter; Y93.89 Activity, other specified; Y92.89 Other specified places as the place of occurrence of the external cause; Y99.8 Other external cause status
CPT/HCPCS: 99282; 99283

== ENCOUNTER 2023-07-20 22:54 | Emergency (ER) | payer BC, MEDICAID ==
[~2023-07-20] VITALS: Ht 167.6 cm; Wt 93.0 kg
[~2023-07-20 22:54] MED LIST changes: +APIX5TAB3 PO; +BUPR-297 PO; +CELE-127 PO; +DIVA500T9 PO; +FAMO40TA7 PO; +FISH1CAP15 PO; +FOLI200T11 PO; +HYDR50TA65 PO; +LACT1CAP65 PO; +NALT50TA PO; +OLAN15TA35 PO
[2023-07-20] MEDS ORDERED: diazepam inj 5 MG/ML inj. IV ONE (23:25)
[2023-07-20] MEDS ORDERED: vancomycin inj 1,000 MG in normal saline 250ml IV soln 250 ML IV ONE (23:35)
[2023-07-20] MEDS ORDERED: vancomycin/NS 1 GM ADD-VANTAGE 250 ML IV ONE (23:40)
[2023-07-21] MEDS ORDERED: ketorolac trometh. 30mg/ml inj. IV ONE (00:30)
[2023-07-21] MEDS ORDERED: levoFLOXACIN-Levaquin 500mg/D5 100 ML IV SCH (00:42)
[2023-07-21 01:28] LABS: BASOPHILS % (AUTO) 0.5 % (0-1); EOSINOPHILS # (AUTO) 0.2 X10'3 (0-0.9); EOSINOPHILS % (AUTO) 5.2 % (0-6); HEMOGLOBIN 13.5 g/dl (12.0-16.0); LYMPHOCYTES # (AUTO) 1.7 X10'3 (1.1-4.8); MEAN CORPUSCULAR HEMOGLOBIN 29.9 PG (27.0-31.0); MEAN CORPUSCULAR HGB CONC 32.9 g/dL (33.0-36.5); MEAN CORPUSCULAR VOLUME 90.8 FL (78-98); MEAN PLATELET VOLUME 8.7 FL (7.4-10.4); MONOCYTES # (AUTO) 0.4 X10'3 (0-0.9); MONOCYTES % (AUTO) 7.7 % (2-12); NEUTROPHILS # (AUTO) 2.3 X10'3 (1.8-7.7); NEUTROPHILS % (AUTO) 49.6 % (42-75); PLATELET COUNT 233 X10'3 (140-440); RED BLOOD COUNT 4.51 X10'6 (4.20-5.60); RED CELL DISTRIBUTION WIDTH 15.1 % (11.5-14.5); WHITE BLOOD COUNT 4.7 X10'3 (4.5-11.0)
[2023-07-21 02:00] VITALS: BP 156/99; PULSE 88; RESP 20; O2SAT 95
[2023-07-21 02:22] LABS: ALANINE AMINOTRANSFERASE 27 U/L (12-78); ALBUMIN 3.1 G/DL (3.4-5.0); ALBUMIN/GLOBULIN RATIO 0.8 (1.1-1.5); ALKALINE PHOSPHATASE 79 IU/L (46-116); ANION GAP 9 (8-16); ASPARTATE AMINO TRANSFERASE 18 U/L (10-37); BILIRUBIN,TOTAL 0.3 MG/DL (0.1-1.0); BLOOD UREA NITROGEN 13 MG/DL (7-18); BUN/CREATININE RATIO 16.9 (10.0-20.0); CALCIUM 8.9 MG/DL (8.5-10.1); CHLORIDE 103 MMOL/L (99-107); CREATININE 0.77 MG/DL (0.40-0.90); GLUCOSE 111 MG/DL (70-104); MAGNESIUM 1.8 MG/DL (1.5-2.4); POTASSIUM 3.8 MMOL/L (3.5-5.1); SODIUM 139 MMOL/L (135-145); TOTAL CARBON DIOXIDE 27.1 MMOL/L (24-32); TOTAL PROTEIN 7.1 G/DL (6.4-8.2); eCRCL 78 ML/MIN; eGFR 78 ML/MIN
[2023-07-21] MEDS ORDERED: DOXY-135 PO (03:05)
[2023-07-21] MEDS ORDERED: SULF1TAB49 PO (04:47)
[2023-07-21] MEDS ORDERED: HYDROcodone/acetaminophen 5mg/325mg tablet PO ONE (05:05)
[2023-07-21 05:35] VITALS: TEMP 97.3
== END 2023-07-21 05:35 | disposition home or self-care (01) ==
LOC: ER 22:55
DX: L03.116 Cellulitis of left lower limb (principal); Z87.81 Personal history of (healed) traumatic fracture; Z88.0 Allergy status to penicillin; Z88.1 Allergy status to other antibiotic agents; Z79.899 Other long term (current) drug therapy
CPT/HCPCS: 36415; 71045; 73700; 80053; 83605; 83735; 84145; 85025; 87040; 87070; 87077; 87186; 93005; 93971; 96365; 96366; 96368; 96375; 99285; A6223; J1885; J1956; J3370; A6446

== ENCOUNTER 2023-09-22 23:03 | Inpatient (IN) | payer BC, MEDICAID ==
[~2023-09-22] VITALS: Ht 167.6 cm; Wt 103.4 kg
[2023-09-23] MEDS ORDERED: potassium Cl 20 mEq SR tablet PO PRN ×2 (00:30)
[2023-09-23] MEDS ORDERED: HYDROcodone/acetaminophen 5mg/325mg tablet PO PRN (00:30)
[2023-09-23] MEDS ORDERED: magnesium hydroxide 30ml (MOM) UD suspension PO PRN (00:30)
[2023-09-23] MEDS ORDERED: morphine 2 MG/ML inj. syringe IV PRN (00:30)
[2023-09-23] MEDS ORDERED: potassium Cl 40MEQ/1/2NS 520ml 520 ML IV PRN (00:30)
[2023-09-23] MEDS ORDERED: magnesium 4gm in 100ml NS 100 ML IV PRN (00:30)
[2023-09-23] MEDS: normal saline 1000ml 1,000 ML IV SCH (00:30)
[2023-09-23] MEDS ORDERED: magnesium 2GM in 50ml NS 50 ML IV PRN (00:30)
[2023-09-23] MEDS ORDERED: mag hydrox/Alum hydrox/simeth 30ml oral suspension PO PRN (00:30)
[2023-09-23 01:53] LABS: BASOPHILS % (AUTO) 0.8 % (0-1); EOSINOPHILS # (AUTO) 0.2 X10'3 (0-0.9); EOSINOPHILS % (AUTO) 3.3 % (0-6); HEMATOCRIT 36.5 % (35.0-45.0); LYMPHOCYTES # (AUTO) 1.6 X10'3 (1.1-4.8); LYMPHOCYTES % (AUTO) 27.5 % (21-51); MEAN CORPUSCULAR HEMOGLOBIN 29.6 PG (27.0-31.0); MEAN CORPUSCULAR HGB CONC 32.7 g/dL (33.0-36.5); MEAN CORPUSCULAR VOLUME 90.5 FL (78-98); MEAN PLATELET VOLUME 8.4 FL (7.4-10.4); MONOCYTES # (AUTO) 0.5 X10'3 (0-0.9); MONOCYTES % (AUTO) 9.4 % (2-12); NEUTROPHILS # (AUTO) 3.4 X10'3 (1.8-7.7); PLATELET COUNT 233 X10'3 (140-440); RED BLOOD COUNT 4.03 X10'6 (4.20-5.60); RED CELL DISTRIBUTION WIDTH 15.2 % (11.5-14.5); WHITE BLOOD COUNT 5.8 X10'3 (4.5-11.0)
[2023-09-23 02:04] LABS: ANION GAP 7 (8-16); BLOOD UREA NITROGEN 11 MG/DL (7-18); BUN/CREATININE RATIO 15.5 (10.0-20.0); CALCIUM 8.2 MG/DL (8.5-10.1); CHLORIDE 107 MMOL/L (99-107); CREATININE 0.71 MG/DL (0.40-0.90); GLUCOSE 108 MG/DL (70-104); SODIUM 143 MMOL/L (135-145); TOTAL CARBON DIOXIDE 29.1 MMOL/L (24-32); eCRCL 85 ML/MIN; eGFR 86 ML/MIN
[2023-09-23 02:09] LABS: POTASSIUM 4.8 MMOL/L (3.5-5.1)
[2023-09-23] MEDS: normal saline 1000ml 1,000 ML IV ONE (02:11)
[2023-09-23] MEDS: heparin, porcine 5000 units/ml vial SQ SCH (02:11)
[2023-09-23] MEDS: vancomycin/NS 1 GM ADD-VANTAGE 250 ML IV ONE (02:43)
[2023-09-23] MEDS: morphine 2 MG/ML inj. syringe IV PRN (02:43)
[2023-09-23] MEDS: ondansetron/PF 4mg/2ml inj IV PRN (02:43)
[2023-09-23] MEDS: diphenhydrAMINE 25mg capsule PO PRN (03:23)
[2023-09-23] MEDS: HYDROcodone/acetaminophen 10/325mg tab PO PRN (04:31)
[2023-09-23] MEDS: gabapentin 100mg capsule PO STA (05:11)
[2023-09-23 05:26] VITALS: PULSE 98; RESP 16; O2SAT 95
[2023-09-23] MEDS ORDERED: ipratropium/albuterol 3ml nebule NEB SCH (07:00)
[2023-09-23 07:47] LABS: POTASSIUM 3.8 MMOL/L (3.5-5.1)
[2023-09-23] MEDS ORDERED: vancomycin/NS 1 GM ADD-VANTAGE 250 ML IV SCH (08:00)
[2023-09-23] MEDS ORDERED: heparin, porcine 5000 units/ml vial SQ SCH (08:00)
[2023-09-23] MEDS: K and/or MAG REPLACEMENT MC SCH (08:30)
[2023-09-23 09:15] VITALS: BP 144/87; PULSE 93; RESP 18; RESP 20; TEMP 97.3; O2SAT 93
[2023-09-23] MEDS: levoFLOXACIN-Levaquin 500mg/D5 100 ML IV SCH (10:49)
[2023-09-23] MEDS: docusate sod 100mg capsule PO SCH (10:51)
[2023-09-23 11:57] VITALS: PULSE 94; RESP 16; O2SAT 92
[2023-09-23] MEDS ORDERED: LORazepam 2 mg/ml vial IV PRN (12:15)
[2023-09-23] MEDS: nicotine 14mg patch - 24hr TD SCH (12:15)
[2023-09-23] MEDS: LORazepam 1 MG tablet PO PRN (13:48)
[2023-09-23] MEDS: vancomycin/NS 1 GM ADD-VANTAGE 250 ML IV SCH (14:01)
[2023-09-23 18:00] VITALS: BP 144/89; PULSE 93; RESP 18; TEMP 97.2; O2SAT 98
[2023-09-23 20:00] VITALS: RESP 18; O2SAT 96
[2023-09-23 22:00] VITALS: BP 133/80; PULSE 87; RESP 16; TEMP 98.7; O2SAT 94
[2023-09-24] VITALS (9 sets, daily range): BP systolic 149–168; BP diastolic 85–97; PULSE 83–98; RESP 16–20; TEMP 97.1–98.7; O2SAT 89–96
[2023-09-24] MEDS: acetaminophen 325mg tablet PO PRN (01:00)
[2023-09-24] MEDS: VANCOMYCIN LEVEL IJ ONE (02:30)
[2023-09-24 03:14] LABS: ALANINE AMINOTRANSFERASE 24 U/L (12-78); ALBUMIN 2.7 G/DL (3.4-5.0); ALBUMIN/GLOBULIN RATIO 0.6 (1.1-1.5); ALKALINE PHOSPHATASE 79 IU/L (46-116); ANION GAP 3 (8-16); ASPARTATE AMINO TRANSFERASE 14 U/L (10-37); BILIRUBIN,TOTAL 0.4 MG/DL (0.1-1.0); BLOOD UREA NITROGEN 10 MG/DL (7-18); CALCIUM 8.3 MG/DL (8.5-10.1); CHLORIDE 105 MMOL/L (99-107); CREATININE 0.77 MG/DL (0.40-0.90); EOSINOPHILS # (AUTO) 0.1 X10'3 (0-0.9); EOSINOPHILS % (AUTO) 2.7 % (0-6); GLUCOSE 116 MG/DL (70-104); LYMPHOCYTES # (AUTO) 0.9 X10'3 (1.1-4.8); MAGNESIUM 1.7 MG/DL (1.5-2.4); MEAN CORPUSCULAR HEMOGLOBIN 29.2 PG (27.0-31.0); POTASSIUM 4.1 MMOL/L (3.5-5.1); SODIUM 140 MMOL/L (135-145); TOTAL CARBON DIOXIDE 32.1 MMOL/L (24-32); VANCOMYCIN,TROUGH 23.5 ug/mL (10.0-20.0); eCRCL 78 ML/MIN; eGFR 78 ML/MIN
[2023-09-24 03:15] LABS: BASOPHILS % (AUTO) 0.9 % (0-1); HEMATOCRIT 36.3 % (35.0-45.0); HEMOGLOBIN 11.7 g/dl (12.0-16.0); LYMPHOCYTES % (AUTO) 21.8 % (21-51); MEAN CORPUSCULAR HGB CONC 32.1 g/dL (33.0-36.5); MEAN CORPUSCULAR VOLUME 90.8 FL (78-98); MEAN PLATELET VOLUME 7.9 FL (7.4-10.4); MONOCYTES # (AUTO) 0.4 X10'3 (0-0.9); MONOCYTES % (AUTO) 11.1 % (2-12); NEUTROPHILS # (AUTO) 2.5 X10'3 (1.8-7.7); NEUTROPHILS % (AUTO) 63.5 % (42-75); PLATELET COUNT 194 X10'3 (140-440); RED CELL DISTRIBUTION WIDTH 15.1 % (11.5-14.5)
[2023-09-24] MEDS: JUVEN Smoothie Arginine/Glut./Ca2+Bmb (Juven 19.3pkt) 240ml cup PO SCH (07:30)
[2023-09-24] MEDS: albuterol 2.5 MG/3 ML nebule NEB PRN (11:38)
[2023-09-24] MEDS: gentamicin 0.1% topical ointment 15gm TP SCH (11:54)
[2023-09-24] MEDS: VANCOMYCIN 750MG IV in NS 250 ML IV SCH (12:32)
[2023-09-25] VITALS (10 sets, daily range): BP systolic 133–158; BP diastolic 76–98; PULSE 79–96; RESP 16–20; TEMP 97.9–98.9; O2SAT 92–97
[2023-09-25] MEDS ORDERED: GADOTERATE MEGLUMINE 7.5 MMOL/15 ML VIAL IV ONE (10:16)
[2023-09-25] MEDS: VANCOMYCIN LEVEL IJ ONE (11:11)
[2023-09-25] MEDS: vancomycin inj 500 MG in normal saline 100ml IV soln 100 ML IV SCH (12:48)
[2023-09-25 13:21] LABS: BILIRUBIN,URINE NEGATIVE (Neg); CLARITY,URINE SLIGHTLY CLOUDY (Clear); COLOR,URINE YELLOW (Yellow); GLUCOSE, URINE NEGATIVE (Neg); KETONES,URINE NEGATIVE (Neg); LEUKOCYTE ESTERASE ,URINE NEGATIVE (Neg); NITRITES, URINE NEGATIVE (Neg); OCCULT BLOOD,URINE NEGATIVE (Neg); PROTEIN,URINE NEGATIVE (Neg); UROBILINOGEN,URINE 0.2 E.U/dL (0.2-1.0)
[2023-09-25 13:28] LABS: BACTERIA,URINE 1+ /HPF (Neg); SQUAMOUS EPITHELIAL CELL,UR MANY /LPF (FEW); UA COLLECTION TYPE CLN CATCH MIDSTREAM
[2023-09-25 13:29] LABS: TRANSITIONAL EPI CELLS,URINE FEW /HPF; WBC,URINE 0-4 /HPF (0-4)
[2023-09-25 13:38] LABS: URINE AMPHETAMINE SCREEN POSITIVE (Neg); URINE BARBITUATE SCREEN NEGATIVE (Neg); URINE BENZODIAZEPINES SCREEN NEGATIVE (Neg); URINE CANNABINOID SCREEN NEGATIVE (Neg); URINE COCAINE SCREEN NEGATIVE (Neg); URINE METHADONE SCREEN NEGATIVE (Neg); URINE OPIATE SCREEN POSITIVE (Neg); URINE PHENCYCLIDINE SCREEN NEGATIVE (Neg)
[2023-09-26 06:00] VITALS: BP 136/93; PULSE 91; RESP 16; TEMP 97.6; O2SAT 97
[2023-09-26 09:09] LABS: EOSINOPHILS # (AUTO) 0.2 X10'3 (0-0.9); LYMPHOCYTES # (AUTO) 1.5 X10'3 (1.1-4.8); MEAN CORPUSCULAR HEMOGLOBIN 29.2 PG (27.0-31.0); MEAN CORPUSCULAR HGB CONC 32.3 g/dL (33.0-36.5); MONOCYTES # (AUTO) 0.7 X10'3 (0-0.9); NEUTROPHILS # (AUTO) 1.6 X10'3 (1.8-7.7)
[2023-09-26 09:11] LABS: BASOPHILS % (AUTO) 1.2 % (0-1); EOSINOPHILS % (AUTO) 4.7 % (0-6); HEMATOCRIT 41.9 % (35.0-45.0); HEMOGLOBIN 13.5 g/dl (12.0-16.0); LYMPHOCYTES % (AUTO) 36.7 % (21-51); MEAN CORPUSCULAR VOLUME 90.3 FL (78-98); MEAN PLATELET VOLUME 8.2 FL (7.4-10.4); MONOCYTES % (AUTO) 17.4 % (2-12); PLATELET COUNT 248 X10'3 (140-440); RED BLOOD COUNT 4.63 X10'6 (4.20-5.60)
[2023-09-26 09:19] VITALS: PULSE 92; RESP 20; O2SAT 99
[2023-09-26 09:29] VITALS: PULSE 87; RESP 20
[2023-09-26 09:30] LABS: ALANINE AMINOTRANSFERASE 26 U/L (12-78); ALBUMIN 2.8 G/DL (3.4-5.0); ALBUMIN/GLOBULIN RATIO 0.6 (1.1-1.5); ALKALINE PHOSPHATASE 91 IU/L (46-116); ANION GAP 5 (8-16); ASPARTATE AMINO TRANSFERASE 18 U/L (10-37); BILIRUBIN,TOTAL 0.4 MG/DL (0.1-1.0); BLOOD UREA NITROGEN 14 MG/DL (7-18); CALCIUM 8.5 MG/DL (8.5-10.1); CHLORIDE 105 MMOL/L (99-107); GLUCOSE 88 MG/DL (70-104); POTASSIUM 4.5 MMOL/L (3.5-5.1); SODIUM 140 MMOL/L (135-145); TOTAL CARBON DIOXIDE 29.6 MMOL/L (24-32); TOTAL PROTEIN 7.7 G/DL (6.4-8.2); eCRCL 86 ML/MIN; eGFR 87 ML/MIN
[2023-09-26] MEDS: VANCOMYCIN LEVEL IV ONE (13:27)
[2023-09-26] MEDS: vancomycin inj 500 MG in normal saline 100ml IV soln 100 ML IV SCH (16:36)
[2023-09-26 18:00] VITALS: BP 116/86; PULSE 92; RESP 16; TEMP 98.2; O2SAT 93
[2023-09-26 20:00] VITALS: RESP 18; O2SAT 96
[2023-09-26 22:00] VITALS: BP 108/70; PULSE 88; RESP 18; TEMP 98; O2SAT 95
[2023-09-27] VITALS (8 sets, daily range): BP systolic 114–157; BP diastolic 70–97; PULSE 88–98; RESP 16–18; TEMP 97.7–98.7; O2SAT 93–97
[2023-09-27 07:13] LABS: BASOPHILS % (AUTO) 1.2 % (0-1); EOSINOPHILS # (AUTO) 0.2 X10'3 (0-0.9); EOSINOPHILS % (AUTO) 5.4 % (0-6); HEMOGLOBIN 13.4 g/dl (12.0-16.0); LYMPHOCYTES # (AUTO) 1.6 X10'3 (1.1-4.8); LYMPHOCYTES % (AUTO) 39.4 % (21-51); MEAN CORPUSCULAR HEMOGLOBIN 29.3 PG (27.0-31.0); MEAN CORPUSCULAR HGB CONC 32.6 g/dL (33.0-36.5); MEAN PLATELET VOLUME 7.8 FL (7.4-10.4); MONOCYTES # (AUTO) 0.5 X10'3 (0-0.9); MONOCYTES % (AUTO) 12.3 % (2-12); NEUTROPHILS # (AUTO) 1.7 X10'3 (1.8-7.7); NEUTROPHILS % (AUTO) 41.7 % (42-75); PLATELET COUNT 287 X10'3 (140-440); RED BLOOD COUNT 4.55 X10'6 (4.20-5.60); RED CELL DISTRIBUTION WIDTH 14.5 % (11.5-14.5)
[2023-09-27 07:37] LABS: ALANINE AMINOTRANSFERASE 26 U/L (12-78); ALBUMIN/GLOBULIN RATIO 0.6 (1.1-1.5); ALKALINE PHOSPHATASE 98 IU/L (46-116); ANION GAP 5 (8-16); ASPARTATE AMINO TRANSFERASE 15 U/L (10-37); BILIRUBIN,TOTAL 0.4 MG/DL (0.1-1.0); BLOOD UREA NITROGEN 16 MG/DL (7-18); BUN/CREATININE RATIO 21.1 (10.0-20.0); CALCIUM 9.2 MG/DL (8.5-10.1); CHLORIDE 102 MMOL/L (99-107); CREATININE 0.76 MG/DL (0.40-0.90); GLUCOSE 110 MG/DL (70-104); MAGNESIUM 1.8 MG/DL (1.5-2.4); POTASSIUM 4.3 MMOL/L (3.5-5.1); SODIUM 139 MMOL/L (135-145); TOTAL CARBON DIOXIDE 31.6 MMOL/L (24-32); TOTAL PROTEIN 8.1 G/DL (6.4-8.2); eCRCL 79 ML/MIN; eGFR 79 ML/MIN
[2023-09-27] MEDS: CefTRIAXone 2gm/D5W 50ml BAG 50 ML IV SCH (07:39)
[2023-09-27] MEDS: diphenhydrAMINE 25mg capsule PO PRN (17:34)
[2023-09-28 05:57] LABS: EOSINOPHILS # (AUTO) 0.3 X10'3 (0-0.9); EOSINOPHILS % (AUTO) 6.5 % (0-6); HEMATOCRIT 42.1 % (35.0-45.0); HEMOGLOBIN 13.7 g/dl (12.0-16.0); LYMPHOCYTES # (AUTO) 2.1 X10'3 (1.1-4.8); LYMPHOCYTES % (AUTO) 51.4 % (21-51); MEAN CORPUSCULAR HEMOGLOBIN 29.2 PG (27.0-31.0); MEAN CORPUSCULAR HGB CONC 32.4 g/dL (33.0-36.5); MEAN CORPUSCULAR VOLUME 89.9 FL (78-98); MEAN PLATELET VOLUME 7.8 FL (7.4-10.4); MONOCYTES # (AUTO) 0.5 X10'3 (0-0.9); MONOCYTES % (AUTO) 12.1 % (2-12); NEUTROPHILS # (AUTO) 1.2 X10'3 (1.8-7.7); PLATELET COUNT 295 X10'3 (140-440); RED BLOOD COUNT 4.68 X10'6 (4.20-5.60); RED CELL DISTRIBUTION WIDTH 14.8 % (11.5-14.5); WHITE BLOOD COUNT 4.1 X10'3 (4.5-11.0)
[2023-09-28 06:00] VITALS: BP 116/80; PULSE 84; RESP 18; TEMP 97.6; O2SAT 92
[2023-09-28 06:14] LABS: ALANINE AMINOTRANSFERASE 34 U/L (12-78); ALBUMIN 3.1 G/DL (3.4-5.0); ALBUMIN/GLOBULIN RATIO 0.6 (1.1-1.5); ALKALINE PHOSPHATASE 101 IU/L (46-116); ANION GAP 4 (8-16); BILIRUBIN,TOTAL 0.5 MG/DL (0.1-1.0); BLOOD UREA NITROGEN 20 MG/DL (7-18); BUN/CREATININE RATIO 27.4 (10.0-20.0); CALCIUM 8.8 MG/DL (8.5-10.1); CHLORIDE 102 MMOL/L (99-107); CREATININE 0.73 MG/DL (0.40-0.90); GLUCOSE 99 MG/DL (70-104); SODIUM 138 MMOL/L (135-145); TOTAL CARBON DIOXIDE 32.1 MMOL/L (24-32); TOTAL PROTEIN 8.2 G/DL (6.4-8.2); eCRCL 82 ML/MIN; eGFR 83 ML/MIN
[2023-09-28 06:16] LABS: ASPARTATE AMINO TRANSFERASE 23 U/L (10-37); POTASSIUM 4.5 MMOL/L (3.5-5.1)
[2023-09-28 08:30] VITALS: RESP 18; O2SAT 95
[2023-09-28 10:00] VITALS: BP 125/86; PULSE 96; RESP 16; TEMP 98.2
[2023-09-28 18:00] VITALS: BP 121/89; PULSE 96; RESP 14; TEMP 98.4; O2SAT 91
[2023-09-28 20:00] VITALS: RESP 15; O2SAT 93
[2023-09-29 06:56] VITALS: BP 113/81; PULSE 89; RESP 16; TEMP 97.6; O2SAT 91
[2023-09-29 09:00] VITALS: RESP 18; O2SAT 93
[2023-09-29 10:00] VITALS: BP 121/76; RESP 18; TEMP 98; O2SAT 94
[2023-09-29 18:00] VITALS: BP 113/79; PULSE 87; RESP 18; TEMP 97.9; O2SAT 91
[2023-09-29 20:00] VITALS: RESP 16; O2SAT 95
[2023-09-30 06:00] VITALS: BP 118/76; PULSE 86; RESP 22; TEMP 97.1; O2SAT 92
[2023-09-30 08:03] LABS: HIV ANTIBODY 1&2 RAPID NON-REACTIVE (Neg)
[2023-09-30 10:00] VITALS: BP 122/81; PULSE 90; RESP 16; TEMP 98; O2SAT 95
[2023-09-30] MEDS ORDERED: DOXY100C2 PO (11:06)
[2023-09-30 14:23] VITALS: RESP 16
== END 2023-09-30 14:47 | disposition home or self-care (01) | DRG 602 ==
LOC: ER 23:04 → ED HOLD 09-23 00:35 → EDBEDREQ 09-23 06:11 → ORTHO 4S 09-23 08:04
PROVIDERS: ADMIT Family Medicine; ATTEND Internal Medicine
DX: L03.116 Cellulitis of left lower limb (principal); J96.21 Acute and chronic respiratory failure with hypoxia; Z59.00 Homelessness unspecified; I82.722 Chronic embolism and thrombosis of deep veins of left upper extremity; J44.9 Chronic obstructive pulmonary disease, unspecified; S81.802A Unspecified open wound, left lower leg, initial encounter; X58.XXXA Exposure to other specified factors, initial encounter; F41.9 Anxiety disorder, unspecified; F31.9 Bipolar disorder, unspecified; F17.200 Nicotine dependence, unspecified, uncomplicated; D72.819 Decreased white blood cell count, unspecified; I10 Essential (primary) hypertension; F20.9 Schizophrenia, unspecified; I73.9 Peripheral vascular disease, unspecified; L97.529 Non-pressure chronic ulcer of other part of left foot with unspecified severity; F19.10 Other psychoactive substance abuse, uncomplicated; Y92.89 Other specified places as the place of occurrence of the external cause; Y99.8 Other external cause status; Z88.0 Allergy status to penicillin; Y93.89 Activity, other specified; Z88.1 Allergy status to other antibiotic agents; Z79.01 Long term (current) use of anticoagulants; Z79.899 Other long term (current) drug therapy; Z91.199 Patient's noncompliance with other medical treatment and regimen due to unspecified reason
CPT/HCPCS: 36415; 73590; 73720; 80048; 80053; 80202; 80305; 81001; 83605; 83735; 84132; 84145; 85025; 86703; 87040; 87081; 93306; 93970; 94640; 94760; 97110; 97116; 97161; 97530; 97535; 99285; A4615; A6223; A6446; A6449; A9575; G0378; J0696; J1644; J1956; J2270; J2405; J3370; J3490; J7030; J7050; Q0163

== ENCOUNTER 2023-10-01 18:21 | Emergency (ER) | payer BC, MEDICAID ==
[~2023-10-01] VITALS: Ht 167.6 cm; Wt 107.7 kg
[~2023-10-01 18:21] MED LIST changes: +DOXY100C2 PO
[2023-10-01 20:00] VITALS: BP 165/103; PULSE 98; RESP 16; TEMP 98; O2SAT 95
== END 2023-10-01 20:02 | disposition home or self-care (01) ==
LOC: ER 18:21
DX: L08.9 Local infection of the skin and subcutaneous tissue, unspecified (principal); B95.8 Unspecified staphylococcus as the cause of diseases classified elsewhere; F15.10 Other stimulant abuse, uncomplicated; Z87.81 Personal history of (healed) traumatic fracture; Z88.0 Allergy status to penicillin; Z88.1 Allergy status to other antibiotic agents; Z88.5 Allergy status to narcotic agent; Z79.899 Other long term (current) drug therapy
CPT/HCPCS: 99281

== ENCOUNTER 2023-12-06 00:15 | Emergency (ER) | payer BC, MEDICAID ==
[~2023-12-06] VITALS: Ht 167.6 cm; Wt 108.2 kg
[~2023-12-06 00:15] MED LIST changes: -DOXY100C2 PO
[2023-12-06 01:59] LABS: BASOPHILS % (AUTO) 0.7 % (0-1); EOSINOPHILS # (AUTO) 0.2 X10'3 (0-0.9); EOSINOPHILS % (AUTO) 4.4 % (0-6); HEMATOCRIT 36.7 % (35.0-45.0); HEMOGLOBIN 12.3 g/dl (12.0-16.0); LYMPHOCYTES # (AUTO) 1.1 X10'3 (1.1-4.8); LYMPHOCYTES % (AUTO) 24.4 % (21-51); MEAN CORPUSCULAR HEMOGLOBIN 29.6 PG (27.0-31.0); MEAN CORPUSCULAR HGB CONC 33.5 g/dL (33.0-36.5); MEAN CORPUSCULAR VOLUME 88.2 FL (78-98); MEAN PLATELET VOLUME 7.9 FL (7.4-10.4); MONOCYTES # (AUTO) 0.6 X10'3 (0-0.9); MONOCYTES % (AUTO) 13.1 % (2-12); NEUTROPHILS # (AUTO) 2.5 X10'3 (1.8-7.7); NEUTROPHILS % (AUTO) 57.4 % (42-75); PLATELET COUNT 312 X10'3 (140-440); RED BLOOD COUNT 4.16 X10'6 (4.20-5.60); RED CELL DISTRIBUTION WIDTH 15.4 % (11.5-14.5); WHITE BLOOD COUNT 4.3 X10'3 (4.5-11.0)
[2023-12-06 02:22] LABS: ALANINE AMINOTRANSFERASE 59 U/L (12-78); ALBUMIN/GLOBULIN RATIO 0.7 (1.1-1.5); ALKALINE PHOSPHATASE 104 IU/L (46-116); ANION GAP 9 (8-16); ASPARTATE AMINO TRANSFERASE 60 U/L (10-37); BILIRUBIN,TOTAL 0.6 MG/DL (0.1-1.0); BLOOD UREA NITROGEN 16 MG/DL (7-18); BUN/CREATININE RATIO 13.7 (10.0-20.0); CHLORIDE 103 MMOL/L (99-107); CREATININE 1.17 MG/DL (0.40-0.90); GLUCOSE 127 MG/DL (70-104); POTASSIUM 3.7 MMOL/L (3.5-5.1); SODIUM 139 MMOL/L (135-145); TOTAL CARBON DIOXIDE 26.7 MMOL/L (24-32); TOTAL PROTEIN 7.5 G/DL (6.4-8.2); eCRCL 51 ML/MIN; eGFR 48 ML/MIN
[2023-12-06 02:30] LABS: PRO BRAIN NATRIURETIC PEPTIDE 370 PG/ML (0-125)
[2023-12-06] MEDS: LORazepam 2 mg/ml vial IV ONE (02:45)
[2023-12-06] MEDS: ipratropium/albuterol 3ml nebule NEB ONE (02:45)
[2023-12-06] MEDS: normal saline 1000ML IV soln IVB ONE (02:45)
[2023-12-06 03:00] VITALS: TEMP 98.7
[2023-12-06] MEDS: cefepime 2g/NS 100ml ADVANTAGE 100 ML IV SCH (04:39)
[2023-12-06] MEDS: normal saline 1000ml 1,000 ML IV ONE ×2 (04:42→07:45)
[2023-12-06] MEDS: methylPREDNISolone sod succ 125mg/2ml vial IV ONE (04:42)
[2023-12-06] MEDS ORDERED: ALBU8HFA INH (06:08)
[2023-12-06] MEDS ORDERED: LEVO-65 PO (06:08)
[2023-12-06] MEDS ORDERED: PRED20TA PO (06:08)
[2023-12-06] MEDS: VANCOMYCIN 1,500MG inj. 1,500 MG in normal saline 500ml IV soln 300 ML IV SCH (07:46)
[2023-12-06 09:05] VITALS: BP 156/96; PULSE 99; O2SAT 93
[2023-12-06 10:42] VITALS: RESP 16
== END 2023-12-06 10:43 | disposition home or self-care (01) ==
LOC: ER 00:16
DX: L03.116 Cellulitis of left lower limb (principal); R05.9 Cough, unspecified; F15.10 Other stimulant abuse, uncomplicated; F17.210 Nicotine dependence, cigarettes, uncomplicated; Z86.718 Personal history of other venous thrombosis and embolism; Z59.00 Homelessness unspecified; Z88.1 Allergy status to other antibiotic agents; Z88.0 Allergy status to penicillin; Z88.8 Allergy status to other drugs, medicaments and biological substances
CPT/HCPCS: 36415; 71045; 80053; 83605; 83880; 84145; 84484; 85025; 87040; 93005; 96365; 96366; 96367; 96375; 99285; J0692; J2930; J3370; J7030; J7040